=== PATIENT | male | born 1965 | race Caucasian/White ===

== ENCOUNTER → 2016-07-21 | Outpatient (CLI) | payer OTHER ==
[~2016-07-21] MED LIST: ACET-1256 PO; CYCL10TA6 PO; CYCL10TA7 PO; IBUP-1050 PO; MORP15TA PO; MethylPREDNISolone HOME PACK 16 MG TAB PO SCH; OMEP40CA PO; OMEP40CA41 PO; OPTIRAY 320 IV PRN; PSEU30TA20 PO; ZNTT/150 PO
--- NOTE | 2016-07-21 08:31 | DIAGNOSTIC IMAGING REPORT ---
CHEST CT WITH CONTRAST CT DOSE: 285.34 mGy.cm HISTORY: Tonsillar carcinoma. TECHNIQUE: Multiaxial CT images of the chest were performed following the intravenous administration of contrast. COMPARISON: Chest CT 12/24/2015. FINDINGS: The central airways remain patent. No pleural effusions. No pneumothorax. Mild emphysema. Mild biapical pleural-parenchymal scarring persists. A few scattered subcentimeter pulmonary nodules are again noted. There are no new or enlarging pulmonary nodules identified. Dominant nodule within the right lower lobe on image 262 measures 6 mm. No suspicious lytic or blastic osseous lesions. The visualized liver, spleen, and adrenal glands are unremarkable. No mediastinal or hilar lymphadenopathy. The heart is normal in size. Normal caliber thoracic aorta. IMPRESSION: No significant change compared to the prior study. Stable bilateral subcentimeter pulmonary nodules. Electronically signed by: Harjit Arcos M.D. 07/21/2016 8:30 AM Dictated Date/Time: 07/21/2016 8:24 AM
== END | disposition home or self-care (01) ==
LOC: C.CTS 07:52
PROVIDERS: ATTEND Nurse Practitioner Family
DX: R91.8 Other nonspecific abnormal finding of lung field (principal); C09.9 Malignant neoplasm of tonsil, unspecified; C76.0 Malignant neoplasm of head, face and neck

== ENCOUNTER 2016-08-23 22:28 | Emergency (ER) | payer OTHER ==
[~2016-08-23] VITALS: Ht 180.3 cm; Wt 72.7 kg
[~2016-08-23 22:28] MED LIST changes: -ACET-1256 PO; -CYCL10TA7 PO; -MethylPREDNISolone HOME PACK 16 MG TAB PO SCH; -OMEP40CA41 PO; -OPTIRAY 320 IV PRN; -ZNTT/150 PO
[2016-08-23 22:31] VITALS: TEMP 36.7; Ht 180.3 cm; Wt 72.7 kg
[2016-08-23] MEDS ORDERED: OMEP40CA41 PO (22:46)
[2016-08-23] MEDS ORDERED: CYCL10TA7 PO (22:46)
[2016-08-23] MEDS ORDERED: ACET-1256 PO (22:46)
[2016-08-23] MEDS ORDERED: METHYLPREDNISOLONE 125 MG VIAL IV STA (23:19)
--- NOTE | 2016-08-23 23:21 | EMERGENCY ROOM VISIT NOTE ---
History Report prepared by Marycruz: Giovanny Jama Under the Supervision of: Dr. Jocy Burt D.O. First contact with patient: 23:03 Chief Complaint: ABDOMINAL PAIN Stated Complaint: PAIN IN SIDE OF BELLY ON RIGHT Nursing Triage Summary: Right lower abdominal pain on and off for two weeks. History of problems with constipation. History of Present Illness The patient is a 51 year old male who presents to the Emergency Room with complaints of intermittent right lower quadrant abdominal pain for the past two weeks. The pain is worse when he is sitting versus when he is up and moving around. The pain is dull in nature. He is also feeling bloated. He denies fevers , chills, nausea, vomiting, leg cramping or swelling. He denies any changes in his urinary habits. He has a history of GERD and notes that his current pain is not similar to his GERD symptoms. 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 He is s/p tonsillectomy and has also had back surgeries. 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 He is on Morphine and deals with chronic constipation. He is not on blood thinners. Source of History: patient Onset: two weeks Position: abdomen (RLQ) Quality: dull Timing: intermittent Modifying Factors (Worsening): other (sitting) Associated Symptoms: No chills, No fevers, No nausea, No urinary symptoms, No vomiting Review of Systems See HPI for pertinent positives & negatives. A total of 10 systems reviewed and were otherwise negative. Past Medical & Surgical Medical Problems: (1) Cellulitis (2) GERD (gastroesophageal reflux disease) (3) Tonsil cancer Surgical Problems: (1) Previous back surgery Family History Cancer FH: aneurysm Social History Smoking Status: Current Every Day Smoker Alcohol Use: none Marital Status: Occupation Status: employed Current/Historical Medications Scheduled Morphine Sulfate Ir (Morphine Sulfate Ir), 15 MG PO QID Omeprazole (Prilosec), 40 MG PO DAILY Scheduled PRN Acetaminophen (Tylenol), 1,000 MG PO Q6H PRN for Pain Cyclobenzaprine HCl (Cyclobenzaprine HCl), 10 MG PO TID PRN for Muscle Spasm Ibuprofen (Advil), 200-600 MG PO Q4H PRN for Pain Allergies Coded Allergies: Oxycodone (Verified Allergy, Severe, SHORTNESS OF BREATH, 02/12/15) Penicillins (Verified Allergy, Intermediate, RASH, 02/12/15) Hydrocodone (Verified Allergy, Unknown, Thrush, 02/12/15) Iodinated Diagnostic Agents (Verified Adverse Reaction, Mild, Myelogram dye - bleeding, 02/12/15) Physical Exam Vital Signs Date Time Temp Pulse Resp B/P Pulse Ox O2 Delivery O2 Flow Rate FiO2 08/24/16 01:31 77 18 104/65 100 08/24/16 00:22 80 18 123/72 100 Room Air 08/23/16 23:58 83 18 109/68 96 Room Air 08/23/16 22:31 36.7 88 18 111/72 98 Room Air Physical Exam HEENT: Head - normocephalic and atraumatic Pupils are equal, round, and reactive to light. Extraocular eye muscles are intact, and sclera are anicteric. Nose - moist nasal mucosa without discharge. Mouth - moist buccal mucosa. Oropharynx is nonerythematous and there is no tonsillar exudate or edema noted. Neck: Supple; no JVD, nuchal rigidity, cervical lymphadenopathy. Heart: Regular rate and rhythm. There is a normal S1 and S2 with no murmurs, clicks, or gallops appreciated. Lungs: Clear to auscultation bilaterally with no wheezes, rales, or rhonchi. Abdomen: Mild discomfort with palpation of the right lower quadrant. Soft, nondistended, with good bowel sounds. There are no palpable pulsatile masses or hepatosplenomegaly. There is no guarding, rigidity, or rebound noted. Extremities: No evidence of cyanosis, clubbing, or edema. There are easily palpable peripheral pulses. Skin: warm and dry with good turgor and no rashes. Medical Decision & Procedures ER Provider Diagnostic Interpretation: Radiology results as stated below per my review and the radiologist's interpretation: CT ABDOMEN & PELVIS: Comparison to PET/CT dated 05/22/15. Liver, gallbladder, spleen, pancreas, adrenal glands, and kidney are normal. No bowel obstruction, appendicitis, or diverticulitis. Urinary bladder and prostate unremarkable. Post-surgical changes bilateral inguinal regions. No acute osseous findings. Posterior decompression and instrumentation with interbody fusion from L4-S1. Severe degenerative disc disease at L3-L4. Radiologist: Antoinette Amado MD. Laboratory Results 08/23/16 22:55 Red Blood Count 4.45, Mean Corpuscular Volume 91.5, Mean Corpuscular Hemoglobin 31.7, Mean Corpuscular Hemoglobin Concent 34.6, Mean Platelet Volume 9.9, Neutrophils (%) (Auto) 70.8, Lymphocytes (%) (Auto) 20.7, Monocytes (%) (Auto) 6.6, Eosinophils (%) (Auto) 1.3, Basophils (%) (Auto) 0.4, Neutrophils # (Auto) 7.90, Lymphocytes # (Auto) 2.31, Monocytes # (Auto) 0.74, Eosinophils # (Auto) 0.15, Basophils # (Auto) 0.04 08/23/16 22:55 Test 08/23/16 22:55 08/23/16 23:20 White Blood Count 11.16 K/uL (4.8-10.8) Red Blood Count 4.45 M/uL (4.7-6.1) Hemoglobin 14.1 g/dL (14.0-18.0) Hematocrit 40.7 % (42-52) Mean Corpuscular Volume 91.5 fL (80-100) Mean Corpuscular Hemoglobin 31.7 pg (25-34) Mean Corpuscular Hemoglobin Concent 34.6 g/dl (32-36) Platelet Count 261 K/uL (130-400) Mean Platelet Volume 9.9 fL (7.4-10.4) Neutrophils (%) (Auto) 70.8 % Lymphocytes (%) (Auto) 20.7 % Monocytes (%) (Auto) 6.6 % Eosinophils (%) (Auto) 1.3 % Basophils (%) (Auto) 0.4 % Neutrophils # (Auto) 7.90 K/uL (1.4-6.5) Lymphocytes # (Auto) 2.31 K/uL (1.2-3.4) Monocytes # (Auto) 0.74 K/uL (0.11-0.59) Eosinophils # (Auto) 0.15 K/uL (0-0.5) Basophils # (Auto) 0.04 K/uL (0-0.2) RDW Standard Deviation 45.7 fL (36.4-46.3) RDW Coefficient of Variation 13.7 % (11.5-14.5) Immature Granulocyte % (Auto) 0.2 % Immature Granulocyte # (Auto) 0.02 K/uL (0.00-0.02) Anion Gap 7.0 mmol/L (3-11) Est Creatinine Clear Calc Drug Dose 70.7 ml/min Estimated GFR () 74.3 Estimated GFR (Non- 64.1 BUN/Creatinine Ratio 20.9 (10-20) Calcium Level 9.1 mg/dl (8.5-10.1) Total Bilirubin 0.4 mg/dl (0.2-1) Direct Bilirubin < 0.1 mg/dl (0-0.2) Aspartate Amino Transf (AST/SGOT) 17 U/L (15-37) Alanine Aminotransferase (ALT/SGPT) 30 U/L (12-78) Alkaline Phosphatase 82 U/L (45-117) Total Protein 7.9 gm/dl (6.4-8.2) Albumin 3.9 gm/dl (3.4-5.0) Lipase 146 U/L (73-393) Urine Color YELLOW Urine Appearance CLEAR (CLEAR) Urine pH 7.0 (4.5-7.5) Urine Specific [place] 1.018 (1.000-1.030) Urine Protein NEG (NEG) Urine Glucose (UA) NEG (NEG) Urine Ketones NEG (NEG) Urine Occult Blood NEG (NEG) Urine Nitrite NEG (NEG) Urine Bilirubin NEG (NEG) Urine Urobilinogen NEG (NEG) Urine Leukocyte Esterase NEG (NEG) Laboratory results per my review. Medications Administered Medications (Trade) Dose Ordered Sig/Garfield Route Start Time Stop Time Status Last Admin Dose Admin Methylprednisolone Sodium Succinate 125 mg 125 mg NOW STAT IV 08/23/16 23:19 08/23/16 23:20 DC 08/23/16 23:28 125 MG Sodium Chloride (Nss 1000ml) 1,000 ml @ 999 mls/hr Q1H1M STAT IV 08/24/16 00:17 08/24/16 01:17 DC 08/24/16 00:28 999 MLS/HR Procedure Medications administered include Solu-Medrol IV, NSS IV. ED Course 2310: Past medical records reviewed. The patient was evaluated in room A10. A complete history and physical exam was performed. IV lock was established. Labs were drawn as above. 2319: The patient has a previous history of possible IV contrast allergy. He was given Solu-Medrol 125 mg IV. 0017: NSS 1000 ml @ 999 mls/hr. patient went for CT scan of the abdomen/pelvis as described above. 0050: Checked on the patient. He is doing well. He will be discharged after receiving his fluids. 0120: The patient is ready for discharge. Medical Decision The patient is a 51 year old male who presents to the ED with right lower quadrant abdominal pain. Differential diagnosis includes diverticulitis, colitis , appendicitis, cystitis. Laboratory interpretation: white count 11.1, stable H&H, BUN 27, creatinine 1.3 , normal glucose, normal LFTs, normal lipase, normal urinalysis. This is a 51-year-old male patient who presents to the emergency department with persistent right lower quadrant abdominal pain. He had no leukocytosis. He has no fever. CT scan of the Ativan/pelvis was negative. Patient had an elevated BUN/creatinine ratio and was given IV fluids. I did review previous records which revealed previous elevated BUN lab tests. I've asked patient to follow-up with his PCP. Impression Primary Impression: RLQ abdominal pain Additional Impression: Dehydration Scribe Attestation The scribe's documentation has been prepared under my direction and personally reviewed by me in its entirety. I confirm that the note above accurately reflects all work, treatment, procedures, and medical decision making performed by me. Departure Information Dispostion Home / Self-Care Referrals No Doctor, Assigned (PCP) Forms Call Back Authorization, HOME CARE DOCUMENTATION FORM, IMPORTANT VISIT INFORMATION Patient Instructions ED Abd Pain Unkn Cause Male, My [facility] Additional Instructions Rest. Take plenty of clear liquids and a bland diet Follow up with PCP if pain persists or if you feel that your sinus infection is worsening Problem Qualifiers
[2016-08-23 23:24] LABS: BASO % 0.4 %; BASO ABS # 0.04 K/uL (0-0.2); COMPLETE YES; EOS % 1.3 %; HEMATOCRIT 40.7 % (42-52); IG% 0.2 %; LYMPH % 20.7 %; LYMPH ABS # 2.31 K/uL (1.2-3.4); MEAN CELL VOLUME 91.5 fL (80-100); MEAN CORPUSCULAR HEMOGLOBIN 31.7 pg (25-34); MEAN CORPUSCULAR HGB CONC 34.6 g/dl (32-36); MEAN PLATELET VOLUME 9.9 fL (7.4-10.4); MONO % 6.6 %; NEUT % 70.8 %; PLATELET COUNT 261 K/uL (130-400); RED BLOOD COUNT 4.45 M/uL (4.7-6.1); WHITE BLOOD COUNT 11.16 K/uL (4.8-10.8)
[2016-08-23 23:40] LABS: URINE APPEARANCE CLEAR (CLEAR); URINE BILIRUBIN NEG (NEG); URINE COLOR YELLOW; URINE NITRITE NEG (NEG); URINE SPECIFIC GRAVITY 1.018 (1.000-1.030); UROBILINOGEN NEG (NEG)
[2016-08-23 23:43] LABS: MANUAL MICROSCOPIC REQUIRED? NO; REVIEW REQ? NO
[2016-08-23 23:44] LABS: ALT/SGPT 30 U/L (12-78); AST/SGOT 17 U/L (15-37); BLOOD UREA NITROGEN 27 mg/dl (7-18); BUN/CREATININE RATIO 20.9 (10-20); CALCIUM 9.1 mg/dl (8.5-10.1); CARBON DIOXIDE 33 mmol/L (21-32); CHLORIDE 102 mmol/L (98-107); GLUCOSE 84 mg/dl (70-99); POTASSIUM 3.6 mmol/L (3.5-5.1); SODIUM 142 mmol/L (136-145)
[2016-08-23] MEDS ORDERED: OPTIRAY 320 IV PRN (23:45)
[2016-08-23 23:47] LABS: ALKALINE PHOSPHATASE 82 U/L (45-117)
[2016-08-24] MEDS ORDERED: SODIUM CHLORIDE 0.9% 1000ML 1,000 ML IV STA (00:17)
[2016-08-24 01:31] VITALS: BP 104/65; PULSE 77; O2SAT 100
--- NOTE | 2016-08-24 07:06 | DIAGNOSTIC IMAGING REPORT ---
CT OF THE ABDOMEN AND PELVIS WITH CONTRAST CLINICAL HISTORY: Right lower quadrant pain. COMPARISON STUDY: PET/CT May 22, 2015. TECHNIQUE: Patient was premedicated for an iodinated IV dye allergy according to ED protocol. Following IV administration of 92 mL of Optiray-320, axial images of the abdomen and pelvis were obtained from the lung bases to the proximal femurs. Images were reviewed in the axial, sagittal, and coronal planes. IV contrast was administered without complication. CT DOSE: 286.62 mGy.cm FINDINGS: Visualized portions of the lower chest demonstrate several subpleural nodules which measure up to 6 mm. These are unchanged since PET/CT of May 16, 2014. These are benign given stability. The liver, spleen, adrenal glands, kidneys and pancreas are normal. There is no peripancreatic or pericholecystic infiltration. There is no hydronephrosis or hydroureter. The caliber and wall thickness of small and large bowel are normal. The appendix is normal. No suspicious osseous lesions are present. There are findings consistent with multilevel discectomy and fusion within the lumbosacral spine. There is no lymphadenopathy within the abdomen or the pelvis. There is no free fluid. No pneumatosis, free air or portal venous gas is present. IMPRESSION: No acute process within the abdomen or pelvis. Normal appendix. Electronically signed by: Javan Torres M.D. 08/24/2016 7:04 AM Dictated Date/Time: 08/24/2016 6:58 AM
[2016-09-18] MEDS ORDERED: ZNTT/150 PO (10:32)
[2016-09-18] MEDS ORDERED: PSEU30TA20 PO (10:32)
== END 2016-08-24 01:32 | disposition home or self-care (01) ==
LOC: C.EDB 22:29 → C.EDA 08-24 01:32
DX: R10.31 Right lower quadrant pain (principal); E86.0 Dehydration; K21.9 Gastro-esophageal reflux disease without esophagitis; F17.200 Nicotine dependence, unspecified, uncomplicated; Z85.89 Personal history of malignant neoplasm of other organs and systems; Z86.19 Personal history of other infectious and parasitic diseases; Z98.890 Other specified postprocedural states; Z88.0 Allergy status to penicillin; Z88.5 Allergy status to narcotic agent; Z88.8 Allergy status to other drugs, medicaments and biological substances; Z91.041 Radiographic dye allergy status; Z80.9 Family history of malignant neoplasm, unspecified

== ENCOUNTER → 2017-04-05 | Outpatient (CLI) | payer OTHER ==
[~2017-04-05] MED LIST changes: +ACET-1256 PO; -CYCL10TA6 PO; +CYCL10TA7 PO; +MethylPREDNISolone HOME PACK 16 MG TAB PO SCH; -OMEP40CA PO; +OMEP40CA41 PO; +OPTIRAY 320 IV PRN; +ZNTT/150 PO
--- NOTE | 2017-04-05 12:03 | DIAGNOSTIC IMAGING REPORT ---
CT SCAN OF THE CHEST WITH IV CONTRAST CLINICAL HISTORY: Tonsillar carcinoma. COMPARISON STUDY: Chest CT scans dated 07/21/2016 and 12/24/2015. PET/CT dated 12/03/2014. TECHNIQUE: Following the IV administration of 93 cc of Optiray 320, CT scan of the thorax was performed from the thoracic inlet to the upper abdomen. Images are reviewed in the axial, sagittal, and coronal planes. IV contrast was administered without complication. A dose lowering technique was utilized adhering to the principles of ALARA. CT DOSE: 311.70 mGycm FINDINGS: Thyroid: Imaged portions of the thyroid gland are normal in size and attenuation. Thoracic aorta: The thoracic aorta is normal in caliber and demonstrates 4-vessel variant arch anatomy. No dissection is seen. Pulmonary vasculature: The pulmonary trunk is normal in caliber. There are no filling defects identified in the central pulmonary vessels to indicate pulmonary embolus. Note that this examination was not protocoled for evaluation of the pulmonary arteries. Heart: The heart is normal in size and configuration, and without pericardial effusion. The coronary arteries are densely calcified. Lungs and pleural spaces: Mild emphysematous change is observed and there is apical scarring. Minimal secretions are noted in the trachea. There is no airspace consolidation typical for pneumonia or pleural effusion. There are scattered pulmonary nodules, similar in size and distribution to prior examinations. A pleural-based nodule in the right lower lobe seen on image #248 measures 7 mm. A left lower lobe pleural-based nodule on image #256 measures 5 mm. At least 10 additional smaller nodules are identified. No new pulmonary nodules are clearly seen. A calcified granuloma is noted along the right major fissure. Mediastinum: There is no mediastinal lymphadenopathy. Kia: Clear. Axillae: There is no axillary lymphadenopathy. Upper abdomen: Partially visualized upper abdominal viscera is within normal limits. Skeletal structures: No lytic or blastic bony lesions are seen. IMPRESSION: 1. There has been no significant change from 07/21/2016. 2. Numerous (at least 10) subcentimeter pulmonary nodules are unchanged in both size and distribution from prior studies. 3. There is no airspace consolidation or pleural effusion. 4. Emphysema. Electronically signed by: Missael Guevara M.D. 04/05/2017 12:02 PM Dictated Date/Time: 04/05/2017 11:53 AM
== END | disposition home or self-care (01) ==
LOC: C.CTS 09:57
PROVIDERS: ATTEND Nurse Practitioner Family
DX: C09.9 Malignant neoplasm of tonsil, unspecified (principal); R91.8 Other nonspecific abnormal finding of lung field; J43.9 Emphysema, unspecified

== ENCOUNTER → 2017-04-20 | Outpatient (CLI) | payer OTHER ==
[~2017-04-20] MED LIST changes: -MethylPREDNISolone HOME PACK 16 MG TAB PO SCH; -OPTIRAY 320 IV PRN
== END | disposition home or self-care (01) ==
LOC: C.LABBC 09:57
PROVIDERS: ATTEND Physician Assistant
DX: R53.83 Other fatigue (principal); F11.20 Opioid dependence, uncomplicated

== ENCOUNTER → 2017-10-05 | Outpatient (CLI) | payer OTHER ==
[~2017-10-05] MED LIST changes: +FLUT0.15 NAE; +OPTIRAY 320 IV PRN; +RANI150T85 PO; +SENNTAB23 PO; -ZNTT/150 PO
--- NOTE | 2017-10-05 08:59 | DIAGNOSTIC IMAGING REPORT ---
SINUS CT WITH INTRAVENOUS CONTRAST HISTORY: TONSILLAR CARCINOMA/PT WILL PRE-MED W/MEDROL TECHNIQUE: Multiaxial CT images of the sinuses were performed reformatted in the coronal plane following the use of intravenous contrast. COMPARISON STUDY: Head CT 05/22/2015. FINDINGS: The frontal sinuses, ethmoid air cells, sphenoid sinuses, right maxillary sinus, and mastoid air cells are clear. Moderate mucosal thickening within the floor of the left maxillary sinus with a trace fluid level. Mild right nasal septal deviation. No suspicious lytic or blastic lesions within the visualized osseous structures. The left ethmoid infundibula is partially opacified. The right ostiomeatal unit is patent. Lamina papyracea and orbital floors are intact. The visualized brain parenchyma and orbits are within normal limits. Pterygopalatine fossa are maintained. The visualized upper neck shows no soft tissue masses or lymphadenopathy. The left internal jugular vein is not identified and may have been previous resected. The visualized right internal jugular vein is patent. IMPRESSION: 1. Moderate mucosal thickening within the floor the left maxillary sinus with a trace fluid level. This suggests acute or chronic sinusitis. 2. Right nasal septal deviation. 3. No soft tissue masses identified within the sinuses. Electronically signed by: Harjit Arcos M.D. 10/05/2017 8:58 AM Dictated Date/Time: 10/05/2017 8:47 AM
--- NOTE | 2017-10-05 09:17 | DIAGNOSTIC IMAGING REPORT ---
CT OF THE NECK WITH CONTRAST CLINICAL HISTORY: Tonsillar carcinoma. COMPARISON STUDY: CT of the neck May 07, 2014 and PET/CT May 22, 2015. TECHNIQUE: Patient was premedicated for IV dye allergy as per protocol. Axial images of the neck were obtained following intravenous injection of 95 cc of Optiray 320 IV. FINDINGS: The CT of the sinuses will be reported separately. Visualized portions of the intracranial contents are unremarkable. There is no cervical lymphadenopathy. No mucosal lesion is identified although these may be occult by CT. Epiglottis is normal. Mild emphysema is noted within visualized portions the lung apices. No suspicious osseous lesions are present. Major vasculature of the neck is patent. Left submandibular gland is diminutive/atrophic. Post therapeutic findings within the left aspect of the neck are noted. The appearance is unchanged since CT of May 22, 2015. Visualized portions of the airway are patent. IMPRESSION: 1. No cervical lymphadenopathy. No evidence for recurrent malignancy. Unchanged appearance of the neck since PET/CT of May 22, 2015. 2. Mild emphysema. Electronically signed by: Javan Torres M.D. 10/05/2017 9:16 AM Dictated Date/Time: 10/05/2017 9:00 AM
== END | disposition home or self-care (01) ==
LOC: C.CTS 08:14
PROVIDERS: ATTEND Nurse Practitioner Family
DX: C09.9 Malignant neoplasm of tonsil, unspecified (principal); J34.2 Deviated nasal septum; J43.9 Emphysema, unspecified

== ENCOUNTER 2022-10-13 06:32 | Inpatient (IN) ==
[2022-10-13] MEDS ORDERED: SODIUM CHLORIDE 0.9% 1000ML 1,000 ML IV ONE (06:45)
[2022-10-13] MEDS ORDERED: GI COCKTAIL ED USE PO ONE (06:45)
[2022-10-13] MEDS ORDERED: KETOROLAC TROMETHAMINE 15 MG/ML VIAL IV ONE (06:45)
--- NOTE | 2022-10-13 06:47 | Emergency Department Note ---
Impression & Plan ST elevation SC (STEMI), Chest pain, Abdominal pain ED Provider Note NAME: TASHA SILVA AGE: 57 SEX: M : 1965 ARRIVES VIA: Walk-In INFORMANT: Patient ED PROVIDER(S): Harris Peña DO CHIEF COMPLAINT: abdominal pain HPI: Patient is a 57-year-old male with a past medical history of opiate dependence, chronic pain, lumbar laminectomy, GERD who presents to the ER for right lower quadrant abdominal pain which radiates up into his whole belly and then up through his chest. He notes he feels as though he has to constantly burp. Pain is significantly worse with eating. He did start yesterday morning and has not eaten since then. He was able to drink clear liquids. Denies any dysuria urgency or frequency. No fevers. Only abdominal surgery that he has had done is a left inguinal hernia repair. Denies all other exacerbating remitting factors. Burping sensation and pain does radiate from the infraumbilical region all the way up through his chest into the back of his throat. Patient notes that he did have the same symptoms about a week ago that only lasted for about an hour. PAST MEDICAL HISTORY:See Below PAST SURGICAL HISTORY:See Below FAMILY HISTORY:See Below SOCIAL HISTORY:See Below HOME MEDICATIONS:See Below ALLERGIES:See Below VITALS:See Below PHYSICAL EXAMINATION: GENERAL: Sitting up in bed, alert, well appearing, well nourished, no distress, non-toxic EYE EXAM: normal conjunctiva. OROPHARYNX: no exudate, no erythema, lips, buccal mucosa, and tongue normal and mucous membranes are moist NECK: supple, no nuchal rigidity, no adenopathy, non-tender LUNGS: Clear to auscultation. Normal chest wall mechanics HEART: no murmurs, S1 normal and S2 normal ABDOMEN: abdomen soft, TTP in epigastric region, normo-active bowel sounds, no masses, no rebound or guarding. : No appreciable hernia swelling. UPPER EXTREMITIES: upper extremities are grossly normal. LOWER EXTREMITIES: No pitting edema. NEURO EXAM: Normal sensorium, cranial nerves II-XII grossly intact, normal speech, no gross weakness of arms, no gross weakness of legs. MEDICAL DECISION MAKING: Patient is a 57-year-old male who presents the ER for abdominal pain radiating up through to the chest and commendation with burping and he believes it is slightly worse with eating. It started yesterday while he was shoveling. Obtained an EKG which showed Q waves throughout with ST segment elevations. Discussed with Dr. Live Montgomery at 7am. Reviewed the presentation and EKG with him. He recommended no heart alert at this time as he is Q'd out and believes that this did not occur within the past 24 hours. He recommends blood work and a full work-up and admission and echo. He was also agreeable with the CTs for dissection. Labs showed a leukocytosis of 20,000. No significant anemia. BMP with mild hyponatremia 131. Glucose 115. AST at 399. T. bili 8.8. Lipase was normal. UA did suggest dehydration. Patient was given aspirin and nitro. Attempted to call IC attending but was unsuccessful in contacting him initially. Did contact the product support technician was able to obtain quick stat echo. CT suggested acute SC as I discussed with Dr. Torres. Following this a quick echo was obtained which did show wall motion abnormality. In light of the gentleman sti ll having pain and wall motion abnormalities with ST segment elevation even with Q waves I did like to call a STEMI alert to have him evaluated at bedside by interventional cardiology. Heparin bolus and drip was ordered. Prior to being given interventional cardiology recommended holding on this. Brilinta was given orally. External records were reviewed. Patient was taken emergently to the [facility]. Triage Nursing notes reviewed. Limited review of prior medical records performed Vital Signs: reviewed and remarkable for tachy Differential diagnosis: Differential diagnoses includes but is not limited to gastritis, peptic ulcer disease, GERD, gallbladder disease, pancreatitis, small bowel obstruction, appendicitis, diverticulitis, hernia, urinary tract infection, torsion, perforation, trauma, infectious. ER treatment provided: See below Diagnostics interpreted by me include EKG and cardiac monitoring as listed below: -Cardiac Monitoring: An order was placed for continuous cardiac monitoring. The monitor shows a rate of 95 with sinus rhythm. -ECG: Sinus tachycardia rate of 105 Left axis Inferior Q waves Anterior and lateral Q waves with ST segment elevations V4 through V6 QTc 454 -Laboratory studies:Interpreted by me as stated above in MDM and shown below. Imaging studies: Xrays: As interpreted by me:none CTs show: CT of the chest per my read shows no obvious infiltrate CT of the chest and abdomen pelvis showed a questionable STEMI Consultation(s): Discussed with Dr. Montgomery recommended an echo and admission. Discussed with Dr. Herrera Torres, product support technician, and Dr. Marshall. Later discussed with Dr. Muller for further evaluation management treatment and admission. Procedures:none Critical Care: I have personally spent 75 minutes of critical care time in the direct management of this patient. This includes bedside care, interpretation of diagnostic studies, and testing, discussion with consultants, patient, and family members, and other required patient management activities. This 75 m inutes is in excess of all separately billable procedures. Past Med/Surg History Medical History (Updated 10/13/22 @ 12:43 by Harris Peña, DO) Acid reflux Cervical radiculopathy Cervical spondylosis GERD (gastroesophageal reflux disease) HPV in male Inguinal hernia Non-ST elevation SC (NSTEMI) Paresthesia of left upper extremity Tonsil cancer (05/18/14) "Status post left tonsillectomy stage TI N2b M0 Status post FNA of left neck Status post left robotic radical tonsillectomy, right robotic tonsillectomy and left selective neck dissection levels 2 through 4 on 06/22/2013. 3 of 37 nodes were positive with extra-robert extension. Positive lymph nodes at level II. Pathologic stage [id number] that T staging was T1 at initial surgery. 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 Feels Safe at Home: Yes Safety Concerns: Feels Safe At This Time Allergies Allergies Allergy/AdvReac Type Severity Reaction Status Date / Time oxycodone Allergy Severe SHORTNESS Verified 10/06/22 09:16 OF BREATH Penicillins Allergy Intermediate RASH Verified 10/06/22 09:16 hydrocodone Allergy Unknown Thrush Verified 10/06/22 09:16 Iodinated Contrast Media AdvReac Mild Myelogram Verified 10/06/22 09:16 dye - bleeding Home Meds Home Medications Medication Instructions Recorded Confirmed acetaminophen 500 mg tablet 1,000 mg PO Q6H PRN 03/17/18 10/06/22 (Tylenol Extra Strength) docusate sodium 100 mg capsule 100 mg PO DAILY 03/17/18 10/06/22 (Colace) ibuprofen 200 mg tablet (Advil) 600 mg PO Q6H PRN 03/17/18 10/06/22 omeprazole 40 mg capsule,delayed 40 mg PO DAILY 03/17/18 10/06/22 release thiamine HCl (vitamin B1) 100 mg 100 mg PO DAILY 07/29/20 10/06/22 tablet Previous Rx's Medication Instructions Recorded naloxone 4 mg/actuation nasal spray 1 spray intranasal Q3M PRN opioid 06/25/22 overdose #2 ea cyclobenzaprine 10 mg tablet 10 mg PO TID PRN muscle spasm #90 10/06/22 tabs morphine 15 mg immediate release 15 mg PO QID PRN pain #120 tabs 10/06/22 tablet Results & Data (ED) Vital Signs Vital Signs - 24 hr 10/13/22 06:35 10/13/22 07:09 10/13/22 07:09 Temperature 36.5 C Temperature Source Temporal Artery Scan Pulse Rate 111 H 104 H Pulse Rate [Apical] 103 H Pulse Rate from SpO2 Sensor Respiratory Rate 18 20 20 Respiratory Effort / Characteristics Non-Labored Spontaneous Non-Labored Spontaneous Respiratory Depth Normal Normal Respiratory Pattern Regular Blood Pressure 136/72 Blood Pressure [Right Arm] 142/86 H Blood Pressure Mean 93 Blood Pressure Mean [Right Arm] 104 Blood Pressure Position Sitting Blood Pressure Position [Right Arm] Pulse Oximetry 98 97 95 Oxygen Delivery Method Room Air Room Air Room Air Sepsis Recent Fever Within 48 Hours No Sepsis New/Unexplained Change in Mental Status N/A Sepsis Action Taken by Nursing No Action Required 10/13/22 07:36 10/13/22 07:52 10/13/22 07:02 Temperature Temperature Source Pulse Rate 107 H 100 H Pulse Rate [Apical] 104 H Pulse Rate from SpO2 Sensor 99 H Respiratory Rate 20 33 H Respiratory Effort / Characteristics Non-Labored Spontaneous Respiratory Depth Normal Respiratory Pattern Regular Blood Pressure Blood Pressure [Right Arm] 142/92 H Blood Pressure Mean Blood Pressure Mean [Right Arm] 108 Blood Pressure Position Blood Pressure Position [Right Arm] Pulse Oximetry 97 99 Oxygen Delivery Method Room Air Sepsis Recent Fever Within 48 Hours Sepsis New/Unexplained Change in Mental Status Sepsis Action Taken by Nursing 10/13/22 07:33 10/13/22 07:33 10/13/22 07:36 Temperature Temperature Source Pulse Rate 103 H 104 H Pulse Rate [Apical] Pulse Rate from SpO2 Sensor 99 H 104 H Respiratory Rate 21 24 Respiratory Effort / Characteristics Respiratory Depth Respiratory Pattern Blood Pressure 140/96 Blood Pressure [Right Arm] Blood Pressure Mean 109 Blood Pressure Mean [Right Arm] Blood Pressure Position Blood Pressure Position [Right Arm] Pulse Oximetry 96 97 Oxygen Delivery Method Sepsis Recent Fever Within 48 Hours Sepsis New/Unexplained Change in Mental Status Sepsis Action Taken by Nursing 10/13/22 07:36 10/13/22 08:00 10/13/22 08:00 Temperature Temperature Source Pulse Rate 107 H Pulse Rate [Apical] Pulse Rate from SpO2 Sensor 106 H Respiratory Rate 20 Respiratory Effort / Characteristics Respiratory Depth Respiratory Pattern Blood Pressure 142/92 H 139/93 Blood Pressure [Right Arm] Blood Pressure Mean 108 108 Blood Pressure Mean [Right Arm] Blood Pressure Position Blood Pressure Position [Right Arm] Pulse Oximetry 96 Oxygen Delivery Method Sepsis Recent Fever Within 48 Hours Sepsis New/Unexplained Change in Mental Status Sepsis Action Taken by Nursing 10/13/22 09:00 10/13/22 09:15 10/13/22 09:39 Temperature 36.6 C Temperature Source Oral Pulse Rate Pulse Rate [Apical] 110 H 100 H Pulse Rate from SpO2 Sensor Respiratory Rate 16 16 Respiratory Effort / Characteristics Non-Labored Spontaneous Non-Labored Spontaneous Respiratory Depth Normal Normal Respiratory Pattern Regular Regular Blood Pressure Blood Pressure [Right Arm] 151/102 H 144/92 H Blood Pressure Mean Blood Pressure Mean [Right Arm] 118 109 Blood Pressure Position Blood Pressure Position [Right Arm] Lying Lying Pulse Oximetry 98 97 Oxygen Delivery Method Room Air Room Air Sepsis Recent Fever Within 48 Hours Sepsis New/Unexplained Change in Mental Status Sepsis Action Taken by Nursing 10/13/22 09:34 10/13/22 09:45 10/13/22 09:30 Temperature Temperature Source Pulse Rate 108 H Pulse Rate [Apical] Pulse Rate from SpO2 Sensor 106 H Respiratory Rate 21 Respiratory Effort / Characteristics Non-Labored Spontaneous Respiratory Depth Normal Respiratory Pattern Regular Blood Pressure 137/95 Blood Pressure [Right Arm] Blood Pressure Mean 106 Blood Pressure Mean [Right Arm] Blood Pressure Position Blood Pressure Position [Right Arm] Pulse Oximetry 97 Oxygen Delivery Method Room Air Sepsis Recent Fever Within 48 Hours Sepsis New/Unexplained Change in Mental Status Sepsis Action Taken by Nursing Laboratory Data 10/13/22 06:59 10/13/22 06:59 Lab Results 10/13/22 10/13/22 10/13/22 Range/Units 06:59 06:59 06:59 WBC 21.51 H (4.8-10.8) K/ul RBC 4.57 L (4.70-6.10) M/uL Hgb 14.4 (14.0-18.0) g/dl Hct 42.3 (42.0-52.0) % MCV 92.6 (80.0-100.0) fL MCH 31.5 (25.0-34.0) pg MCHC 34.0 (32.0-36.0) g/dL RDW Std Deviation 46.2 (36.4-46.3) fL RDW Coeff of Payton 13.5 (11.5-14.5) % Plt Count 317 (130-400) K/uL MPV 10.0 (9.4-12.4) fL Immature Gran % (Auto) 0.5 % Neut % (Auto) 86.6 % Lymph % (Auto) 6.3 % [place] % (Auto) 6.5 % Eos % (Auto) 0.0 % Baso % (Auto) 0.1 % Neut # (Auto) 18.60 H (1.40-6.50) K/uL Lymph # (Auto) 1.36 (1.2-3.4) K/uL [place] # (Auto) 1.40 H (0.11-0.59) K/uL Eos # (Auto) 0.01 (0-0.50) K/uL Baso # (Auto) 0.03 (0-0.2) K/uL Immature Gran # (Auto) 0.11 (0.01-0.20) K/uL Sodium 131 L (136-145) mmol/L Potassium 3.8 (3.5-5.1) mmol/L Chloride 95 L (98-107) mmol/L Carbon Dioxide 28 (21-32) mmol/L Anion Gap 8 (3-11) BUN 16 (6-23) mg/dl Creatinine 1.10 (0.6-1.4) mg/dl Est Cr Clr Drug Dosing 80.8 ml/min Est GFR ( Amer) 87.1 ml/min Est GFR (Non-Af Amer) 75.2 ml/min BUN/Creatinine Ratio 14.5 (10-20) Glucose 115 H (70-99(Fasting)) mg/dl Calcium 10.4 H (8.6-10.3) mg/dl Phosphorus 3.4 (2.5-4.9) mg/dl Magnesium 2.1 (1.7-2.4) mg/dl Total Bilirubin 0.8 (0.2-1.0) mg/dl AST 399 H (13-39) U/L ALT 70 H (7-52) U/L Alkaline Phosphatase 80 (34-104) U/L Troponin I High Sens 07185.1 H* (0-20) pg/ml Total Protein 8.1 (6.0-8.3) gm/dl Albumin 4.6 (3.4-5.0) gm/dl Globulin 3.5 (2.5-4.0) gm/dl Albumin/Globulin Ratio 1.3 (0.9-2) Lipase 11 (11-82) U/L Urine Color Yellow Urine Appearance Cloudy A (Clear) Urine pH 7.0 (4.5-7.5) Ur Specific [place]atin 1.011 (1.000-1.030) Urine Protein Negative (Negative) Urine Glucose (UA) Negative (Negative) Urine Ketones 3+ H (Negative) Urine Blood Negative (Negative) Urine Nitrite Negative (Negative) Urine Bilirubin Negative (Negative) Urine Urobilinogen Negative (Negative) Ur Leukocyte Esterase Negative (Negative) Urine WBC (Auto) 0 (0-5) /hpf Urine RBC (Auto) 0-4 (0-4) /hpf U Hyaline Cast (Auto) 1-5 (0-5) /lpf U Epithel Cells (Auto) 5-10 H (0-5) /lpf Urine Bacteria (Auto) Negative (Negative) SARS-CoV-2, RNA, NAAT (NEGATIVE) 10/13/22 Range/Units 07:34 WBC (4.8-10.8) K/ul RBC (4.70-6.10) M/uL Hgb (14.0-18.0) g/dl Hct (42.0-52.0) % MCV (80.0-100.0) fL MCH (25.0-34.0) pg MCHC (32.0-36.0) g/dL RDW Std Deviation (36.4-46.3) fL RDW Coeff of Payton (11.5-14.5) % Plt Count (130-400) K/uL MPV (9.4-12.4) fL Immature Gran % (Auto) % Neut % (Auto) % Lymph % (Auto) % [place] % (Auto) % Eos % (Auto) % Baso % (Auto) % Neut # (Auto) (1.40-6.50) K/uL Lymph # (Auto) (1.2-3.4) K/uL [place] # (Auto) (0.11-0.59) K/uL Eos # (Auto) (0-0.50) K/uL Baso # (Auto) (0-0.2) K/uL Immature Gran # (Auto) (0.01-0.20) K/uL Sodium (136-145) mmol/L Potassium (3.5-5.1) mmol/L Chloride (98-107) mmol/L Carbon Dioxide (21-32) mmol/L Anion Gap (3-11) BUN (6-23) mg/dl Creatinine (0.6-1.4) mg/dl Est Cr Clr Drug Dosing ml/min Est GFR ( Amer) ml/min Est GFR (Non-Af Amer) ml/min BUN/Creatinine Ratio (10-20) Glucose (70-99(Fasting)) mg/dl Calcium (8.6-10.3) mg/dl Phosphorus (2.5-4.9) mg/dl Magnesium (1.7-2.4) mg/dl Total Bilirubin (0.2-1.0) mg/dl AST (13-39) U/L ALT (7-52) U/L Alkaline Phosphatase (34-104) U/L Troponin I High Sens (0-20) pg/ml Total Protein (6.0-8.3) gm/dl Albumin (3.4-5.0) gm/dl Globulin (2.5-4.0) gm/dl Albumin/Globulin Ratio (0.9-2) Lipase (11-82) U/L Urine Color Urine Appearance (Clear) Urine pH (4.5-7.5) Ur Specific [place] (1.000-1.030) Urine Protein (Negative) Urine Glucose (UA) (Negative) Urine Ketones (Negative) Urine Blood (Negative) Urine Nitrite (Negative) Urine Bilirubin (Negative) Urine Urobilinogen (Negative) Ur Leukocyte Esterase (Negative) Urine WBC (Auto) (0-5) /hpf Urine RBC (Auto) (0-4) /hpf U Hyaline Cast (Auto) (0-5) /lpf U Epithel Cells (Auto) (0-5) /lpf Urine Bacteria (Auto) (Negative) SARS-CoV-2, RNA, NAAT NEGATIVE (NEGATIVE) Administered Medications Atorvastatin Calcium (Atorvastatin 40 Mg Tab) 40 mg PO QAM [facility] Stop: 11/12/22 08:59 Last Admin: 10/13/22 11:06 Dose: 40 mg Documented By: MIRLANDE Heparin Sodium/Dextrose (Heparin Sodium/Dextrose) 25,000 units in 500 mls @ 19 mls/hr IV .Q24H [facility]; Protocol Stop: 11/12/22 08:14 Last Titration: 10/13/22 09:52 Dose: 950 units/hr, 19 mls/hr Documented By: MIRLANDE Co-signed By: REBECCA Admin: 10/13/22 08:51 Dose: 1,400 units/hr, 28 mls/hr Documented By: MAGDA Co-signed By: EMMANUEL Metoprolol Tartrate (Metoprolol Tartrate 25 Mg Tab) 25 mg PO BID [facility] Stop: 11/12/22 10:14 Last Admin: 10/13/22 11:06 Dose: 25 mg Documented By: MIRLANDE Nitroglycerin (Nitroglycerin Sl 0.4 Mg/Tab Tab) 0.4 mg SL PRN PRN PRN Reason: Chest Pain Stop: 11/12/22 11:09 Last Admin: 10/13/22 11:36 Dose: 0.4 mg Documented By: MIRLANDE Nitroglycerin (Nitroglycerin 2% Ointment 30gm Tube) 1 inch EXT TID@0600,1 200,1800 [facility] Stop: 11/12/22 11:59 Last Admin: 10/13/22 12:33 Dose: 1 inch Documented By: MIRLANDE Pantoprazole Sodium (Pantoprazole 40 Mg Tab) 40 mg PO QAM [facility] Stop: 11/12/22 11:14 Last Admin: 10/13/22 11:38 Dose: 40 mg Documented By: MIRLANDE Discontinued Medications Al Hydrox/Mg Hydrox/Simethicone (Gi Cocktail Ed Use) 1 dose PO ONE ONE Stop: 10/13/22 06:46 Last Admin: 10/13/22 06:57 Dose: 1 dose Documented By: SONIDO Al Hydrox/Mg Hydrox/Simethicone (Aluminum/Magnesium Susp 30 Ml Udc) 15 ml PO NOW STA Stop: 10/13/22 11:07 Last Admin: 10/13/22 11:36 Dose: 15 ml Documented By: MIRLANDE Aspirin (Aspirin Chew 324 Mg) 324 mg PO NOW STA Stop: 10/13/22 07:14 Last Admin: 10/13/22 07:33 Dose: 324 mg Documented By: SONIDO Atropine Sulfate (Atropine Sulfate 0.1 Mg/Ml 10ml Syr) Confirm Administered Dose 1 mg IV .STK-MED ONE Stop: 10/13/22 08:26 Last Admin: 10/13/22 10:36 Dose: Not Given Documented By: MIRLANDE Fentanyl Citrate (Fentanyl Citrate Pf 100 Mcg/2 Ml Vial) Confirm Administered Dose 100 mcg .ROUTE .STK-MED ONE Stop: 10/13/22 07:51 Last Increment: 10/13/22 08:49 Dose: 25 mcg Documented By: MAGDA Heparin Sodium (Porcine) (Heparin (Porcine) 1000 Unit/Ml 10 Ml ([facility] Use Only)) Confirm Administered Dose 10,000 units .ROUTE .STK-MED ONE Stop: 10/13/22 07:51 Last Admin: 10/13/22 08:50 Dose: 7,000 units Documented By: MAGDA Heparin Sodium/Sodium Chloride (Heparin In Nss Infusion 1000 Unit/500 Ml (2 U/Ml) Bag) Confirm Administered Dose 3,000 units IV .STK-MED ONE Stop: 10/13/22 07:51 Last Admin: 10/13/22 08:50 Dose: 3,000 units Documented By: ELDER Sodium Chloride (Nss 1000ml) 1,000 mls @ 999 mls/hr IV .Q1H1M ONE Stop: 10/13/22 07:45 Last Infusion: 10/13/22 12:26 Dose: 0 mls/hr Documented By: Admin: 10/13/22 06:56 Dose: 999 mls/hr Documented By: SONIDO Ioversol (Optiray 320 500ml) 120 ml IV ONCE ONE Stop: 10/13/22 07:28 Last Admin: 10/13/22 07:28 Dose: 120 ml Documented By: MELYSSA Ketorolac Tromethamine (Ketorolac Tromethamine 15 Mg/Ml Vial) 15 mg IV NOW ONE Stop: 10/13/22 06:46 Last Admin: 10/13/22 06:56 Dose: 15 mg Documented By: SONIDO Midazolam HCl (Midazolam Hcl 1 Mg/Ml 2ml Vial) Confirm Administered Dose 2 mg .ROUTE .STK-MED ONE Stop: 10/13/22 07:51 Last Increment: 10/13/22 08:50 Dose: 1 mg Documented By: MAGDA Morphine Sulfate (Morphine Sulfate 2 Mg/Ml Carp) 2 mg IV NOW STA Stop: 10/13/22 09:10 Last Admin: 10/13/22 10:50 Dose: 2 mg Documented By: MIRLANDE Morphine Sulfate (Morphine Sulfate 2 Mg/Ml Carp) Confirm Administered Dose 2 mg .ROUTE .STK-MED ONE Stop: 10/13/22 09:15 Last Admin: 10/13/22 09:17 Dose: 2 mg Documented By: EMMANUEL Nicardipine HCl (Nicardipine Hcl Inj 2.5 Mg/Ml 10 Ml Amp) Confirm Administered Dose 25 mg .ROUTE .STK-MED ONE Stop: 10/13/22 07:51 Last Admin: 10/13/22 08:50 Dose: 25 mg Documented By: ELDER Nitroglycerin (Nitroglycerin Sl 0.4 Mg/Tab Tab) 0.4 mg SL NOW STA Stop: 10/13/22 07:14 Last Admin: 10/13/22 07:33 Dose: 0.4 mg Documented By: SONIDO Nitroglycerin/Dextrose (Nitroglycerin/D5w 100mcg/Ml 20ml Syr) Confirm Administered Dose 2,000 mcg .ROUTE .STK-MED ONE Stop: 10/13/22 07:51 Last Admin: 10/13/22 08:50 Dose: 2,000 mcg Documented By: ELDER Ticagrelor (Ticagrelor 90 Mg Tab) Confirm Administered Dose 180 mg .ROUTE .STK- MED ONE Stop: 10/13/22 08:00 Last Admin: 10/13/22 08:13 Dose: 180 mg Documented By: [facility] Imaging Data Radiologist's Impression: Abdomen/Pelvis CT 10/13/22 06:52 CT OF THE ABDOMEN AND PELVIS WITH CONTRAST CLINICAL HISTORY: Periumbilical abdominal pain. COMPARISON STUDY: CT of the abdomen and pelvis August 24, 2016. TECHNIQUE: Following IV administration of 120 mL of Optiray, axial images of the abdomen and pelvis were obtained from the lung bases to the proximal femurs. Images were reviewed in the axial, sagittal, and coronal planes. IV contrast was administered without complication. Automated exposure control was utilized for the study. A dose lowering technique was utilized adhering to the principles of ALARA. FINDINGS: Multiple subpleural nodules within the lower lungs are unchanged since prior exams. These are benign given stability. There is mild dilatation of the left ventricle. Note is made of subendocardial hypodensity within the left ventricular apex as well as involving the mid to distal aspects of the free wall and interventricular septum. No pneumatosis, free air or portal venous gas is present. Liver, spleen, adrenal glands, kidneys and pancreas are normal. There is no biliary or pancreatic ductal dilatation. No evidence for a bowel obstruction. The appendix is normal. There is moderate plaque of the abdominal aorta. There are postoperative findings within the spine. No fluid collection is present. There is no ascites. No hydronephrosis. IMPRESSION: 1. No acute process within the abdomen or pelvis. 2. Findings suggestive of acute myocardial infarction involving the left ventricle, as described above. Discussed with Dr. Peña at time of dictation. ACT 112: Negative or not required by law. Electronically signed by: Javan Torres M.D. 10/13/2022 7:56 AM Chest CTA 10/13/22 07:13 CT ANGIOGRAPHY OF THE CHEST CLINICAL HISTORY: Abdominal pain through up into chest. COMPARISON STUDY: Chest CTs January 31, 2020 and May 20, 2022. TECHNIQUE: Helical axial images of the chest were obtained during arterial phase following intravenous injection of 120 cc of Optiray 320 IV. Sagittal and yates l reconstructions were viewed as well as maximal intensity projections on an independent 3-D workstation. Automated exposure control was utilized for the study. A dose lowering technique was utilized adhering to the principles of ALARA. FINDINGS: Caliber of the thoracic aorta is normal. There is no thoracic aortic dissection. No pulmonary emboli are identified. There is no pericardial effusion. Extensive calcification within the left anterior descending coronary artery is present. There is mild dilatation of the left ventricle. Note is made of hypodensity within the myocardium of the left ventricle which involves the mid to distal interventricular septum, the apex and the mid to distal aspect of the free wall. No pneumothorax pleural effusion is present. There is subtle interlobular septal thickening. Pulmonary nodules are unchanged from earlier exams. These are benign given stability. Emphysema is noted. No consolidation to suggest pneumonia. No acute fractures. Abdomen and pelvis CT will be reported separately. IMPRESSION: 1. No thoracic aortic dissection. 2. Myocardial hypodensity within the left ventricle, as detailed above. This is suspicious for an acute myocardial infarction. Findings discussed with Dr. Peña at time of dictation. Mild dilatation of the left ventricle. Extensive calcification within the left anterior descending coronary. 3. Possible mild pulmonary edema. 4. No change in multiple pulmonary nodules which are benign given stability. 5. Emphysema. ACT 112: Negative or not required by law. Electronically signed by: Javan Torres M.D. 10/13/2022 7:51 AM Discharge Plan Visit Data Chief Complaint: GI Assessment Stated Complaint: GAS PUSHING UP UNDER CHEST,NECK PAIN ED Provider: Harris Peña Discharge Problem: ST elevation SC (STEMI), Chest pain, Abdominal pain Patient Disposition: Admitted As Inpatient Discharge Instructions Interventions: ED Discharge Assessment Last Done: 10/13/22 08:11
[2022-10-13] MEDS ORDERED: ASPIRIN CHEW 324 MG PO STA (07:13)
[2022-10-13] MEDS ORDERED: NITROGLYCERIN SL 0.4 MG/TAB TAB SL STA (07:13)
[2022-10-13 07:22] LABS: Appearance Urine Cloudy (Clear); Bacteria Urine Automated Negative (Negative); Bilirubin Urine Negative (Negative); Blood Urine Negative (Negative); Color Urine Yellow; Glucose Urine UA Negative (Negative); Ketones Urine 3+ (Negative); Leukocyte Esterase Urine Negative (Negative); Nitrite Urine Negative (Negative); Protein Urine Negative (Negative); RBC Urine Automated 0-4 /hpf (0-4); Specific Gravity Urine 1.011 (1.000-1.030); Urobilinogen Urine Negative (Negative); WBC Urine Automated 0 /hpf (0-5)
[2022-10-13 07:25] LABS: Basophils # (auto) 0.03 K/uL (0-0.2); Basophils % (auto) 0.1 %; Eosinophils # (auto) 0.01 K/uL (0-0.50); Hematocrit (blood only) 42.3 % (42.0-52.0); Hemoglobin 14.4 g/dl (14.0-18.0); Immature Granulocytes # (auto) 0.11 K/uL (0.01-0.20); Immature Granulocytes % (auto) 0.5 %; Lymphocytes # (auto) 1.36 K/uL (1.2-3.4); Lymphocytes % (auto) 6.3 %; Mean Corpuscular Hemoglobin 31.5 pg (25.0-34.0); Mean Corpuscular Volume 92.6 fL (80.0-100.0); Monocytes % (auto) 6.5 %; Neutrophils % (auto) 86.6 %; Platelet Count 317 K/uL (130-400); RDW Coefficient of Variation 13.5 % (11.5-14.5); RDW Standard Deviation 46.2 fL (36.4-46.3); Red Blood Count 4.57 M/uL (4.70-6.10); White Blood Count 21.51 K/ul (4.8-10.8)
[2022-10-13] MEDS ORDERED: OPTIRAY 320 500ml IV ONE (07:27)
[2022-10-13 07:39] LABS: Albumin Globulin Ratio 1.3 (0.9-2); Albumin Level 4.6 gm/dl (3.4-5.0); BUN Creatinine Ratio 14.5 (10-20); Bilirubin,Total 0.8 mg/dl (0.2-1.0); Calcium 10.4 mg/dl (8.6-10.3); Creatinine Clr Calc Pharmacy 80.8 ml/min; Est GFR (African American) 87.1 ml/min; Est GFR (Non-African American) 75.2 ml/min; Globulin 3.5 gm/dl (2.5-4.0); Potassium 3.8 mmol/L (3.5-5.1); Total Protein 8.1 gm/dl (6.0-8.3)
[2022-10-13] MEDS ORDERED: NITROGLYCERIN/D5W 100MCG/ML 20ML SYR ONE (07:50)
[2022-10-13] MEDS ORDERED: HEPARIN (PORCINE) 1000 UNIT/ML 10 ML (CATH LAB USE ONLY) ONE (07:50)
[2022-10-13] MEDS ORDERED: niCARdipine HCL INJ 2.5 MG/ML 10 ML AMP ONE (07:50)
[2022-10-13] MEDS ORDERED: MIDAZOLAM HCL 1 MG/ML 2ML VIAL ONE (07:50)
[2022-10-13] MEDS ORDERED: fentaNYL citrate PF 100 MCG/2 ML VIAL ONE (07:50)
--- NOTE | 2022-10-13 07:53 | CT Scan Report ---
CT ANGIOGRAPHY OF THE CHEST CLINICAL HISTORY: Abdominal pain through up into chest. COMPARISON STUDY: Chest CTs January 31, 2020 and May 20, 2022. TECHNIQUE: Helical axial images of the chest were obtained during arterial phase following intravenou s injection of 120 cc of Optiray 320 IV. Sagittal and coronal reconstructions were viewed as well as maximal intensity projections on an independent 3-D workstation. Automated exposure control was utili Mersive for the study. A dose lowering technique was utilized adhering to the principles of ALARA. FINDINGS: Caliber of the thoracic aorta is normal. There is no thoracic aortic dissection. No pulmona ry emboli are identified. There is no pericardial effusion. Extensive calcification within the left a nterior descending coronary artery is present. There is mild dilatation of the left ventricle. Note i s made of hypodensity within the myocardium of the left ventricle which involves the mid to distal in terventricular septum, the apex and the mid to distal aspect of the free wall. No pneumothorax pleura l effusion is present. There is subtle interlobular septal thickening. Pulmonary nodules are unchange d from earlier exams. These are benign given stability. Emphysema is noted. No consolidation to sugge st pneumonia. No acute fractures. Abdomen and pelvis CT will be reported separately. IMPRESSION: 1. No thoracic aortic dissection. 2. Myocardial hypodensity within the left ventricle, as detailed above. This is suspicious for an acu te myocardial infarction. Findings discussed with Dr. Peña at time of dictation. Mild dilatation of the left ventricle. Extensive calcification within the left anterior descending coronary. 3. Possible mild pulmonary edema. 4. No change in multiple pulmonary nodules which are benign given stability. 5. Emphysema. ACT 112: Negative or not required by law. Electronically signed by: Javan Torres M.D. 10/13/2022 7:51 AM
--- NOTE | 2022-10-13 07:57 | CT Scan Report ---
CT OF THE ABDOMEN AND PELVIS WITH CONTRAST CLINICAL HISTORY: Periumbilical abdominal pain. COMPARISON STUDY: CT of the abdomen and pelvis August 24, 2016. TECHNIQUE: Following IV administration of 120 mL of Optiray, axial images of the abdomen and pelvis w ere obtained from the lung bases to the proximal femurs. Images were reviewed in the axial, sagittal, and coronal planes. IV contrast was administered without complication. Automated exposure control w as utilized for the study. A dose lowering technique was utilized adhering to the principles of ALAYovani Craig. FINDINGS: Multiple subpleural nodules within the lower lungs are unchanged since prior exams. These a re benign given stability. There is mild dilatation of the left ventricle. Note is made of subendocar dial hypodensity within the left ventricular apex as well as involving the mid to distal aspects of t he free wall and interventricular septum. No pneumatosis, free air or portal venous gas is present. L iver, spleen, adrenal glands, kidneys and pancreas are normal. There is no biliary or pancreatic duct al dilatation. No evidence for a bowel obstruction. The appendix is normal. There is moderate plaque of the abdominal aorta. There are postoperative findings within the spine. No fluid collection is pre sent. There is no ascites. No hydronephrosis. IMPRESSION: 1. No acute process within the abdomen or pelvis. 2. Findings suggestive of acute myocardial infarction involving the left ventricle, as described kathleen mohan. Discussed with Dr. Peña at time of dictation. ACT 112: Negative or not required by law. Electronically signed by: Javan Torres M.D. 10/13/2022 7:56 AM
[2022-10-13] MEDS ORDERED: TICAGRELOR 90 MG TAB ONE (07:59)
[2022-10-13] MEDS ORDERED: Heparin IV Adult Wt-Based Low-Dose WITH Bolus Protocol STA (07:59)
[2022-10-13] MEDS ORDERED: HEPARIN SOD (PORCINE) 1000 UNIT/ML IV ONE ×2 (08:14→10:00)
[2022-10-13 08:18] LABS: Troponin I High Sensitivity 61160.1 pg/ml (0-20)
[2022-10-13] MEDS ORDERED: ATROPINE SULFATE 0.1 MG/ML 10ML SYR IV ONE (08:25)
[2022-10-13] MEDS: HEPARIN SODIUM/DEXTROSE 25,000 UNITS/500 ML BAG IV SCH (08:51)
[2022-10-13] MEDS ORDERED: ONDANSETRON INJ 2 MG/ML 2 ML VIAL IV PRN (08:54)
[2022-10-13] MEDS ORDERED: SODIUM CHLORIDE 0.9% 500 ML IV PRN (08:54)
[2022-10-13] MEDS ORDERED: ACETAMINOPHEN 325 MG TAB PO PRN (08:54)
[2022-10-13] MEDS ORDERED: MoRPHine SULFATE 2 MG/ML CARP IV STA (09:09)
[2022-10-13] MEDS ORDERED: KETOROLAC TROMETHAMINE 15 MG/ML VIAL IV PRN (09:12)
[2022-10-13] MEDS ORDERED: MoRPHine SULFATE 2 MG/ML CARP ONE (09:14)
--- NOTE | 2022-10-13 09:16 | Electrocardiogram Report ---
Test Reason : Blood Pressure : / mmHG Vent. Rate : 105 BPM Atrial Rate : 105 BPM P-R Int : 166 ms QRS Dur : 096 ms QT Int : 344 ms P-R-T Axes : 070 254 063 degrees QTc Int : 454 ms Sinus tachycardia Left atrial enlargement Acute Anterolateral infarct Inferior infarct , age undetermined Abnormal ECG When compared with ECG of 16-MAY-2014 09:24, ST elevation in Anterior leads now present Criteria for Inferior infarct now present Confirmed by Phill Catalan ([id number]) on 10/13/2022 9:15:26 AM Referred By: REFERRED SELF Confirmed By:Phill Catalan
[2022-10-13] MEDS ORDERED: POLYETHYLENE (MIRALAX) 17 GM PACK PO PRN (09:53)
--- NOTE | 2022-10-13 10:02 | Critical Care Consultation ---
Date of Consultation October 13, 2022 Assessment & Plan (1) ST elevation AR (STEMI): (2) Chest pain: (3) Ischemic cardiomyopathy: (4) ST elevation (STEMI) myocardial infarction involving left anterior descending coronary artery: (5) Coronary artery disease: (6) Lumbar post-laminectomy syndrome: (7) Current smoker: (8) Transaminitis: Plan CTA chest 10/13/2022 personally reviewed:Centrilobular emphysema appreciated bilaterally, minimal bilateral apical pleural scarring more on the right Right lower lobe peripheral pleural-based 4 mm pulmonary nodule Dependent atelectasis bilateral lower lobes No pulmonary emboli -- STEMI S/p cardiac cath 10/13/2022, unsuccessful attempted PCI Diagonal ostium of the LAD 100% occlusion Medical management with aspirin, statin, beta-blockers Plavix/Brilinta on hold for possible surgical intervention needed in the near future Troponin 611,000, CPK 3655 TSH 0.6 Trend troponin and EKG Cardiology following 2D echo shows EF 30-35% with akinesia of the LV --Transaminitis Likely secondary to STEMI Continue to trend --Anginal pain Patient still complains of pain He has been getting morphine and nitroglycerin --COPD and active smoker Greater than [id number] smoking history Not on any inhalers at home Importance of quitting explained to the patient in depth -- Chronic opioid dependence Takes morphine at home Would continue with the same regimen along with laxatives --Leukocytosis Likely reactive to STEMI No clear source of infection Continue to trend --Prophylaxis VTE: Heparin drip GI: Pantoprazole Lines: Peripheral Diet: Cardiac Plan: Repeat EKG still showed mild ST elevation on the lateral leads Patient still complaining of chest pain. Giving nitroglycerin paste. If the patient still complains of pain then nitroglycerin drip could be thought of keeping an eye on SBP Start the patient on Incruse inhaler to be used on a daily basis Nicotine patch while in the hospital Please note the above document was generated using voice recognition software. It may contain grammatical, syntax or spelling errors.Any formal questions or concerns about the content, text or information contained within the body of this dictation should be directly addressed to the provider for clarification. History of Present Illness Attending Physician: Lino Marshall MD, PhD History of Present Illness 57-year-old present to the hospital with chest pain Past medical history: Chronic low back pain on morphine as well as Flexeril Patient had a heart alert and was taken to the [facility] Patient is in the ICU for further care At the time of examination patient systolic blood pressure was in the 130s, heart rate in the mid 100s He was in distress complaining of pain when he takes deep breath. It was not reproducible on palpation Also complaining of some reflux. Patient has been complaining of chest pain since Wednesday of last week on and off which was getting progressively worse. It is retrosternal sometimes radiating to the left shoulder No exacerbating or relieving factors. When he got nitroglycerin in the ER it did help Patient has chronic lower back pain for which he takes morphine along with Flexeril. Denied any headache or dizziness. No shortness of breath, no coughing No fever or chills No dysuria, no diarrhea Social history: Greater than [id number] smoking history, currently smoking 1 and half pack a day. 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 Allergies Allergy/AdvReac Type Severity Reaction Status Date / Time oxycodone Allergy Severe SHORTNESS Verified 10/06/22 09:16 OF BREATH Penicillins Allergy Intermediate RASH Verified 10/06/22 09:16 hydrocodone Allergy Unknown Thrush Verified 10/06/22 09:16 Iodinated Contrast Media AdvReac Mild Myelogram Verified 10/06/22 09:16 dye - bleeding Home Medications Medication Instructions Recorded Confirmed Type acetaminophen 500 mg tablet 1,000 mg PO Q6H PRN 03/17/18 10/06/22 History (Tylenol Extra Strength) docusate sodium 100 mg capsule 100 mg PO DAILY 03/17/18 10/06/22 History (Colace) ibuprofen 200 mg tablet (Advil) 600 mg PO Q6H PRN 03/17/18 10/06/22 History omeprazole 40 mg capsule,delayed 40 mg PO DAILY 03/17/18 10/06/22 History release thiamine HCl (vitamin B1) 100 mg 100 mg PO DAILY 07/29/20 10/06/22 History tablet naloxone 4 mg/actuation nasal spray 1 spray intranasal Q3M PRN opioid 06/25/22 10/06/22 Rx overdose #2 ea cyclobenzaprine 10 mg tablet 10 mg PO TID PRN muscle spasm #90 10/06/22 10/06/22 Rx tabs morphine 15 mg immediate release 15 mg PO QID PRN pain #120 tabs 10/06/22 10/06/22 Rx tablet Patient History Medical History (Updated 10/13/22 @ 15:57 by Kimberly Mcgee MD, [facility]) Acid reflux Cervical radiculopathy Cervical spondylosis GERD (gastroesophageal reflux disease) HPV in male Inguinal hernia Non-ST elevation AR (NSTEMI) Paresthesia of left upper extremity Tonsil cancer (05/18/14) "Status post left tonsillectomy stage TI N2b M0 Status post FNA of left neck Status post left robotic radical tonsillectomy, right robotic tonsillectomy and left selective neck dissection levels 2 through 4 on 06/22/2013. 3 of 37 nodes were positive with extra-robert extension. Positive lymph nodes at level II. Pathologic stage [id number] that T staging was T1 at initial surgery. 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 Feels Safe at Home: Yes Safety Concerns: Feels Safe At This Time Review of Systems Review of Systems: All systems reviewed & are unremarkable except as noted in HPI & below Physical Exam Physical Exam: Constitutional: In mild distress secondary to chest pain HEENT: EOMI, PERRLA Respiratory system: Decreased air entry bilaterally, no wheeze, no rhonchi, mild crackles bilateral lower lobes CVS: S1-S2 positive, no murmurs or gallops, distant heart sounds Abdomen: Soft, nontender, nondistended, positive bowel sounds x4 Extremities: +2 pulses bilaterally radialis/ dorsalis pedis, no cyanosis, no edema Neuro: Awake alert oriented x3 Psych: Normal mood and affect G/U: No Godinez Skin: no rashes, warm and dry Lymphatic: no cervical or axillary lymphadenopathy Results & Data Results & Data Vital Signs (Past 12 Hours) Vital Signs Temp Pulse Pulse Resp BP BP Pulse Ox 10/13/22 09:15 100 H 16 144/92 H 97 10/13/22 09:00 110 H 16 151/102 H 98 10/13/22 08:00 107 H 20 96 10/13/22 08:00 139/93 10/13/22 07:36 142/92 H 10/13/22 07:36 104 H 24 97 10/13/22 07:33 103 H 21 96 10/13/22 07:33 140/96 10/13/22 07:02 100 H 33 H 99 10/13/22 07:52 107 H 10/13/22 07:36 104 H 20 142/92 H 97 10/13/22 07:09 104 H 20 95 10/13/22 07:09 103 H 20 142/86 H 97 10/13/22 06:35 36.5 C 111 H 18 136/72 98 O2 Del Method 10/13/22 09:15 Room Air 10/13/22 09:00 Room Air 10/13/22 08:00 10/13/22 08:00 10/13/22 07:36 10/13/22 07:36 10/13/22 07:33 10/13/22 07:33 10/13/22 07:02 10/13/22 07:52 10/13/22 07:36 Room Air 10/13/22 07:09 Room Air 10/13/22 07:09 Room Air 10/13/22 06:35 Room Air Laboratory Results 10/13/22 06:59 10/13/22 06:59 Coding Level of Care Code 93071 IN/OBS CONSULT LVL 5,80M Diagnoses ST elevation AR (STEMI) I21.3 Chest pain R07.[address] elevation (STEMI) myocardial infarction involving left anterior descending coronary artery I21.02 Coronary artery disease I25.10 Lumbar post-laminectomy syndrome M96.1 Current smoker F17.200 Transaminitis R74.01
--- NOTE | 2022-10-13 10:20 | Cardiology Consultation ---
Date of Consultation October 13, 2022 Assessment & Plan (1) Atherogenic dyslipidemia: We will obtain a fasting lipid panel. He is initiated on a atorvastatin 40 mg p.o. daily. He is considered high risk and under current guidelines aggressive LDL reduction target of greater than or equal to 50% of untreated baseline LDL is recommended. (2) Coronary artery disease: Severe total occlusion of the mid LAD. Mild to moderate nonocclusive disease in the circumflex. We will initiate guideline directed medical therapy for secondary prevention of coronary disease including; low-dose aspirin, a atorvastatin 40 mg daily, and metoprolol tartrate 25 mg p.o. twice daily. We will titrate these medications and consider addition of ANU inhibitor/ARB once we have his labs for review and see his response to initial therapy. (3) Benign essential hypertension: Blood pressure was elevated in the Sack Cleaning Hand. The invasive blood pressure was much higher than the cuff pressure. He is initiated on metoprolol tartrate 25 mg p.o. twice daily. Consider ANU inhibitor/ARB. We can also utilize a long- acting nitrate if necessary to improve microvascular dysfunction (antianginal) as well as blood pressure control. (4) ST elevation (STEMI) myocardial infarction involving left anterior descending coronary artery: This seems to be a late presenting/subacute infarction. Lesion was not safely amenable to PCI. Patient has very elevated troponin as well as significant wall motion abnormalities on the echocardiogram. Conservative medical management is recommended. Aspirin, beta-sonia, statin, heparin drip. We will need to reassess viability of this distribution. If significant viability then a LORA to LAD bypass graft would be reasonable or attempted LIBRARY DIRECTOR PCI can be made at a tertiary center. He had only minimal collateral flow so I suspect there will not be any significant viability. He is still at risk for mechanical complication of myocardial infarction so should remain in the ICU and we will monitor closely. Should he develop mechanical complication I do recommend transfer to tertiary center with cardiac surgical services. Do not add Plavix or Brilinta at this time as this would only delay surgery if needed. He did rec eive Brilinta in the emergency department. (5) Ischemic cardiomyopathy: Initial review of the echo suggested reduced EF. I will completely review study and make additional recommendations pending overall assessment with regard to heart failure regimen and potential need for LifeVest/ICD. We will be cautious to avoid excessive IV fluid resuscitation. Most likely he will need heart failure indicated beta-sonia (convert metoprolol to tartrate to metoprolol succinate) and may also need Entresto/ANU inhibitor/ARB. Plan I will continue to follow, reassess, and make additional recommendations. History of Present Illness Reason for Consultation: Chest pain, acute PR Attending Physician: Lino Marshall MD, PhD History of Present Illness 57-year-old gentleman who came to the emergency department this morning for complaints of " gas and pressure" along his lower costal margin. An EKG was obtained. This demonstrated significant abnormalities suggestive of acute anterolateral myocardial infarction. A "heart alert" was called. On my arrival patient had persistent chest discomfort. He told me that he had actually been having the discomfort since yesterday at around 11 AM. Furthermore, he has had the chest discomfort on and off for at least the last week and had a protracted episode the week preceding his evaluation in the emergency department. In speaking with his Linda, she told me that last week his daughter found him laying in the living room, awake complaining of pain, nausea, vomiting, and diaphoresis. He has been feeling poorly since that time. She states that he he kept blaming it on his gut secondary to his chronic opioid use. I reviewed the EKG which demonstrated large Q waves in the anterolateral leads with ST elevations. There were no reciprocal ischemic changes in the other leads. An echo was performed before my arrival. I briefly reviewed the images which demonstrated akinesis of the mid to distal anteroseptal, apex, and lateral and anterior myocardium. This was suggestive of LAD territory myocardial infarction of unknown onset. Patient told me that his chest pain was worse with deep in spiration. However, because he continued with baseline chest discomfort decision was made to take him emergently to the cardiac catheterization suite. In the catheterization suite coronary angiography revealed 100% occlusion of the mid LAD just distal to the diagonal and a large first septal. Attempts were made to cross the lesion but these were unsuccessful. The lesion behaved like a chronic total occlusion or subacute total occlusion. We were unable to safely attempt PCI. Given these findings and the history suggestive of myocardial infarction over a week ago we decided the patient should be on medical therapy rather than risk complication of PCI at this institution without cardiac surgical backup. Patient has been started on aspirin, beta-sonia, statin, the heparin drip after bolus was started postprocedure, the echo will be reviewed and additional recommendations made. Patient is also provided nonsteroidal for the pleuritic component of his chest discomfort and morphine for additional pain relief. Hospitalist will direct the noncardiac portion of his care. Allergies Allergy/AdvReac Type Severity Reaction Status Date / Time oxycodone Allergy Severe SHORTNESS Verified 10/06/22 09:16 OF BREATH Penicillins Allergy Intermediate RASH Verified 10/06/22 09:16 hydrocodone Allergy Unknown Thrush Verified 10/06/22 09:16 Iodinated Contrast Media AdvReac Mild Myelogram Verified 10/06/22 09:16 dye - bleeding Home Medications Medication Instructions Recorded Confirmed Type acetaminophen 500 mg tablet 1,000 mg PO Q6H PRN 03/17/18 10/06/22 History (Tylenol Extra Strength) docusate sodium 100 mg capsule 100 mg PO DAILY 03/17/18 10/06/22 History (Colace) ibuprofen 200 mg tablet (Advil) 600 mg PO Q6H PRN 03/17/18 10/06/22 History omeprazole 40 mg capsule,delayed 40 mg PO DAILY 03/17/18 10/06/22 History release thiamine HCl (vitamin B1) 100 mg 100 mg PO DAILY 07/29/20 10/06/22 History tablet naloxone 4 mg/actuation nasal spray 1 spray intranasal Q3M PRN opioid 06/25/22 10/06/22 Rx overdose #2 ea cyclobenzaprine 10 mg tablet 10 mg PO TID PRN muscle spasm #90 10/06/22 10/06/22 Rx tabs morphine 15 mg immediate release 15 mg PO QID PRN pain #120 tabs 10/06/22 10/06/22 Rx tablet Patient History Medical History (Updated 10/13/22 @ 10:56 by Lino Marshall MD, PhD) Acid reflux Cervical radiculopathy Cervical spondylosis GERD (gastroesophageal reflux disease) HPV in male Inguinal hernia Non-ST elevation PR (NSTEMI) Paresthesia of left upper extremity Tonsil cancer (05/18/14) "Status post left tonsillectomy stage TI N2b M0 Status post FNA of left neck Status post left robotic radical tonsillectomy, right robotic tonsillectomy and left selective neck dissection levels 2 through 4 on 06/22/2013. 3 of 37 nodes were positive with extra-robert extension. Positive lymph nodes at level II. Pathologic stage [id number] that T staging was T1 at initial surgery. 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 Sclera are anicteric. ENMT: Oral mucosa is pink and dry Neck: No JVD Respiratory: Clear to auscultation bilaterally. Fair air movement. Cardiovascular: Regular rhythm with a tachycardic rate. Musculoskeletal: no cyanosis or clubbing, extremities motor strength 5/5 Right radial access site is intact TR band in place. Neurologic: Cognition intact. Speech fluent. No focal deficits. No tremor. Psychiatric: A+Ox3, euthymic affect Results & Data Vital Signs (Past 12 Hours) Vital Signs Temp Pulse Pulse Resp BP BP Pulse Ox 10/13/22 09:15 100 H 16 144/92 H 97 10/13/22 09:00 110 H 16 151/102 H 98 10/13/22 08:00 107 H 20 96 10/13/22 08:00 139/93 10/13/22 07:36 142/92 H 10/13/22 07:36 104 H 24 97 10/13/22 07:33 103 H 21 96 10/13/22 07:33 140/96 10/13/22 07:02 100 H 33 H 99 10/13/22 07:52 107 H 10/13/22 07:36 104 H 20 142/92 H 97 10/13/22 07:09 104 H 20 95 10/13/22 07:09 103 H 20 142/86 H 97 10/13/22 06:35 36.5 C 111 H 18 136/72 98 O2 Del Method 10/13/22 09:15 Room Air 10/13/22 09:00 Room Air 10/13/22 08:00 10/13/22 08:00 10/13/22 07:36 10/13/22 07:36 10/13/22 07:33 10/13/22 07:33 10/13/22 07:02 10/13/22 07:52 10/13/22 07:36 Room Air 10/13/22 07:09 Room Air 10/13/22 07:09 Room Air 10/13/22 06:35 Room Air PG Care Time/CCT Total # of Minutes Spent Total Time Spent with Patient: Total time spent is greater than 50% in coordination of care (as documented) at patient's floor/unit and/or counseling patient: A total of 70 minutes critical care time was spent in the initial evaluation/examination of the patient, discussion with the patient, spouse, and care team. Also included is review of the records, formulation and implementation of a plan of care, and all associated documentation. This is exclusive of the time spent for the procedure. Coding Level of Care Code 93148 CRITICAL CARE 1ST 30-74M Diagnoses Atherogenic dyslipidemia E78.5 Coronary artery disease I25.10 Benign essential hypertension I10 ST elevation (STEMI) myocardial infarction involving left anterior descending coronary artery I21.02 Ischemic cardiomyopathy I25.5
--- NOTE | 2022-10-13 11:00 | Pre Anesthesia Assessment ---
Date of Service October 13, 2022 Pre Sedation Assessment Vital Signs Temp Pulse Pulse Resp BP BP Pulse Ox 10/13/22 09:15 100 H 16 144/92 H 97 10/13/22 09:00 110 H 16 151/102 H 98 10/13/22 08:00 107 H 20 96 10/13/22 08:00 139/93 10/13/22 07:36 142/92 H 10/13/22 07:36 104 H 24 97 10/13/22 07:33 103 H 21 96 10/13/22 07:33 140/96 10/13/22 07:02 100 H 33 H 99 10/13/22 07:52 107 H 10/13/22 07:36 104 H 20 142/92 H 97 10/13/22 07:09 104 H 20 95 10/13/22 07:09 103 H 20 142/86 H 97 10/13/22 06:35 36.5 C 111 H 18 136/72 98 O2 Del Method 10/13/22 09:15 Room Air 10/13/22 09:00 Room Air 10/13/22 08:00 10/13/22 08:00 10/13/22 07:36 10/13/22 07:36 10/13/22 07:33 10/13/22 07:33 10/13/22 07:02 10/13/22 07:52 10/13/22 07:36 Room Air 10/13/22 07:09 Room Air 10/13/22 07:09 Room Air 10/13/22 06:35 Room Air Cardiovascular Additional Comments: Sinus tachycardia Respiratory normal respiratory effort, lungs clear to auscultation Pre-Sedation Airway Assessment Smoking Status: Current every day smoker Class II Class IV Notes The planned sedation has been discussed with the patient. Informed Consent was obtained. I have identified the patient, determined the appropriateness of sedation and have assessed the patient immediately prior to the procedure. All medicine(s) and interventions are by my order.
--- NOTE | 2022-10-13 11:02 | Post Anesthesia Assessment ---
Date of Service October 13, 2022 Post Sedation Assessment Vital Signs Temp Pulse Pulse Resp BP BP Pulse Ox 10/13/22 09:15 100 H 16 144/92 H 97 10/13/22 09:00 110 H 16 151/102 H 98 10/13/22 08:00 107 H 20 96 10/13/22 08:00 139/93 10/13/22 07:36 142/92 H 10/13/22 07:36 104 H 24 97 10/13/22 07:33 103 H 21 96 10/13/22 07:33 140/96 10/13/22 07:02 100 H 33 H 99 10/13/22 07:52 107 H 10/13/22 07:36 104 H 20 142/92 H 97 10/13/22 07:09 104 H 20 95 10/13/22 07:09 103 H 20 142/86 H 97 10/13/22 06:35 36.5 C 111 H 18 136/72 98 O2 Del Method 10/13/22 09:15 Room Air 10/13/22 09:00 Room Air 10/13/22 08:00 10/13/22 08:00 10/13/22 07:36 10/13/22 07:36 10/13/22 07:33 10/13/22 07:33 10/13/22 07:02 10/13/22 07:52 10/13/22 07:36 Room Air 10/13/22 07:09 Room Air 10/13/22 07:09 Room Air 10/13/22 06:35 Room Air Recovery Score Activity: Moves 4 extremities Respiration: Deep Breath/Cough Circulation: +/-20% PreAnes Value Consciousness: Fully Awake Oxygen Saturation: > 92% On Room Air Post Anesthesia Score: 10 Discharge Sedation Level of Care: Fast Track Phase II Post Sedation Plan On clinical assessment, the patient appears to have tolerated the sedation without complications. Patient is recovering as anticipated. Patient will continue to be monitored by nursing and may be discharged when sedation discharge criteria are met per below protocol. Upon Completions of procedure up to 15 minutes continue every 5 minute vital signs and the P.A.R. score; then discharge to a Phase I or Fast Track to Phase II per the following guidelines: * Discharge Patient to appropriate Phase II area if PAR is 8 or greater or return to pre- procedure baseline. The post - procedure orders will be as directed. * If PAR score is less than 8 or not return to pre-procedure baseline then patient will follow Phase I monitoring till PAR is reached for Phase II. The Phase I may be done in procedure room or may call to secure a Phase I area. * If naloxone or flumazenil are used for reversal, hold in Phase I for c ontinued monitoring from when last reversal dose was given for a minimum of 60 minutes or longer pending the nurse and/or physician discretion of patient condition before discharge to Phase II. Please call the Sedation Physician to re-evaluate and complete post-note for discharge to Phase II area. Do NOT discharge from procedure sedation or Phase 1 until post- sedation evaluation note is complete by procedure /sedation MD Sedation Discharge Instructions to be given to the patient at discharge to home. [facility] [place] Procedure Codes (Charges) Indication for Procedure Indication for procedure: Myocardial infarction Sedation/Anesthesia Procedure 1: Sedation/Anesthesia: 28218 Mod Sedation by the same physician;Init15 Min Child Age 5 & Up (Initial 15 minutes (start time 0820)) Total Sedation Time (minutes): 27 Procedure 2: Sedation/Anesthesia: 12438 Mod Sedation by the same physician; Ea [id number] Minutes (Additional 12 min (end time 0847)) Total Sedation Time (minutes): 27
[2022-10-13] MEDS: METOPROLOL TARTRATE 25 MG TAB PO SCH ×2 (11:06→21:16)
[2022-10-13] MEDS: ATORVASTATIN 40 MG TAB PO SCH (11:06)
[2022-10-13] MEDS ORDERED: ALUMINUM/MAGNESIUM SUSP 30 ML UDC PO STA (11:06)
[2022-10-13] MEDS ORDERED: NITROGLYCERIN SL 0.4 MG/TAB TAB SL PRN (11:10)
[2022-10-13 11:17] LABS: Magnesium 2.1 mg/dl (1.7-2.4)
[2022-10-13 11:22] LABS: Phosphorus 3.4 mg/dl (2.5-4.9)
--- NOTE | 2022-10-13 11:28 | Cardiac Catheterization ---
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 Cardiac Status Clinical evaluation leading to the procedure CAD Presenation: STEMI Anginal Classification: CCS IV Heart Failure: NYHA Class: CCS III Cardiogenic Shock within 24 Hours: No Cardiac Arrest within 24 Hours: No Imaging Studies Past 6 Months: No Stress Studies Past 6 Months: No STEMI OR Non-STEMI Symptom Onset Date: 10/12/22 Symptom Onset Time: 11:00 Thrombolytics: No Coronary Anatomy Dominant: Left Left Main (% Stenosis): Normal LAD (% Stenosis): Mid (100%) D1 (% Stenosis): Normal Circumflex (% Stenosis): Distal (Focal 50%) and Normal (Diffuse mild) OM1 (% Stenosis): Normal OM2 (% Stenosis): Normal OM3 (% Stenosis): Normal L PL1 (% Stenosis): Normal L PL2 (% Stenosis): Normal L PDA (% Stenosis): Normal RCA (% Stenosis): Normal Diagnostic Physicians Name: Lino Marshall MD, PhD Closure Device Percutaneous Entry Location: Radial Closure Device: Radial Band Recommendations: Medical Therapy and/or Counseling PCI Indication: PCI for STEMI - Stable First Noted: First EKG Lesion Segment Name: Mid LAD Culprit Artery: Yes Stenosis Prior to Rx (%): 100% Chronic Total Occlusion: Yes Pre-Procedure INDIRA Flow: 0 Previously Treated Lesion: No Thrombus Present: No Guidewire Across Lesion: No Intraprocedure Events Significant Disection: No Perforation: No Cardiac Cath Procedure Full Procedure Date October 13, 2022 Pre-Procedure Diagnosis Pre-Procedure Diagnosis: STEMI AUC Score AUC Score: 09 Post-Procedure Diagnosis Post-Procedure Diagnosis: Severe CAD and Unsuccessful PCI Procedure(s) Performed Procedure(s) Performed: Coronary Angiography Ampoule Filler And Sealer Lino Marshall MD, PhD Estimated Blood Loss Estimated Blood Loss: 5 mL Medication(s) Medication(s): Fentanyl, Heparin, Lidocaine 1%, Nicardipine, Nitroglycerin and Versed Summary of Findings Brief description: Patient was brought to the cardiac catheterization suite where he was shaved and prepped in a sterile fashion. Sedated using IV Versed and fentanyl. Soft tissues of the right wrist were anesthetized using 2 mils of 1% Xylocaine. The right radial artery was accessed using a modified Seldinger technique and a 6 [place]guill[place] radial artery glide sheath was placed. Patient was provided anticoagulation with IV heparin and antispasmodics including nicardipine and nitroglycerin. All catheters were advanced and exchanged over a 0.035 J-tip wire. Left coronary angiography was performed in orthogonal views with a 6 [place]guillan EBU 3.0 guide catheter. Right coronary angiography was performed in orthogonal views with a 5 [place] JR4 diagnostic catheter. Attempted PCI was undertaken using the 6 Anguillan EBU 3.0 guide catheter. A BMW universal guidewire was advanced through the guide catheter but could not cross the lesion in the LAD. It was therefore exchanged for a BiondVax guidewire which also was unable to cross the lesion. Finally, a master pilot hydrophilic guidewire was advanced. It also did not initially cross the "cap" of the lesion. It was eventually able to be advanced across the but the wire had a tactile feel of being subintimal and it buckled with forward pressure. It was retracted and reattempted multiple times. However, we could not safely ad bella the guidewire. Because the lesion was at best subacute and probably chronic total occlusion by its behavior and we have no cardiac surgical backup in this institution, decision was made to abandon further attempts to cross the lesion. The risks of perforation/complication seem to greatly outweigh the anticipated benefit of PCI to this late presenting occlusion. Medical management was therefore our primary strategy and this was discussed with the patient. Therefore, the guidewire was removed from the patient. The guide catheter was then removed and the diagnostic right coronary angiography was completed as above. Radial artery sheath was removed. Hemostasis was obtained using the TR band. Patient remained hemodynamically stable. He was subsequently admitted to the intensive care unit. This ended the case. Coronary angiography: [id number]-iwriatu vessel bifurcating into LAD and circumflex. No significant disease. LAD- Large caliber. Provides a medium caliber first diagonal and a medium to large caliber septal trunk. Proximal segment has mild luminal irregularities. Then, just after the diagonal ostium there is a flat 100% occlusion. INDIRA 0 flow. There is some late staining distal to this occurring via faint left to left collateralization. LCx- This is a large caliber and dominant vessel. Travels in the AV groove where the first obtuse marginal is large and branching. It arises high off the circumflex. The AV groove vessel has mild diffuse disease in the proximal, mid, and early distal vessel. After the OM1 there is a small to medium caliber OM 2 and then a small caliber OM 3. Beyond the OM 3 the AV groove vessel remains large and there is a focal 50% stenosis. Then, a large branching posterolateral arises followed by 2 small posterolateral branches and finally the circumflex terminates in a large caliber long PDA. These distal branch vessels have no an giographically significant disease. RCA- Medium caliber and nondominant. No significant disease. PCI: Flat cap occlusion occurring at the bifurcation of diagonal which is resistant to wire passage and there is no evidence of recent thrombus suggests this is a chronic total or subtotal occlusion. Unable to safely pass standard coronary guide wires Hydrophilic guidewire was able to pass the cap, however, not into the lumen and inadequately to introduce a balloon. There was no evidence of perforation post wire passage Unsuccessful attempted PCI Summary: Late presenting/subacute myocardial infarction secondary to LAD occlusion Unsuccessful attempted PCI of the LAD lesion Optimize medical therapy In the near future will need to assess viability of the myocardium as if there is significant viability then revascularization via LORA to LAD bypass or high risk GROCERY CLERK CHECKING PCI can be considered at a tertiary center. Hemodynamics Rest Ao:: 125/86 mmHg Final Ao: 165/84 mmHg LV: Not performed Recommendations Recommendations: Medical Therapy and/or Counseling Radiation Exposure (mGy) 861 mGy, fluoroscopy time 8.1 minutes Contrast (mls) 75 mL Anesthesia 1 mg IV Versed, 25 mcg IV fentanyl Procedural Complication(s) None Disposition ICU I attest to the content of the Intraoperative Record and any orders documented therein. Any exceptions are noted below. [facility] Card Cath Procedure Codes Cardiac Catheterization Procedure 1: Cardiovascular Cath Procedures: 61093 Coronaries Moderate Sedation Procedure 1: Sedation/Anesthesia: 68757 Mod Sedation by the same physician;Init15 Min Child Age 5 & Up (Initial 15 min, total 27 min. Start 0820 end 0847) Procedure 2: Sedation/Anesthesia: 86808 Mod Sedation by the same physician; Ea Ad [id number] Minutes (Additional 12 min) PG Care Time/CCT Total # of Minutes Spent Total Time Spent with Patient: Total time spent is greater than 50% in coordination of care (as documented) at patient's floor/unit and/or counseling patient:
[2022-10-13] MEDS: PANTOprazole 40 MG TAB PO SCH (11:38)
[2022-10-13] MEDS: NITROGLYCERIN 2% OINTMENT 30GM TUBE EXT SCH ×2 (12:33→17:40)
--- NOTE | 2022-10-13 12:49 | History & Physical Report ---
Date of Service October 13, 2022 Assessment & Plan (1) ST elevation NV (STEMI): Plan: P/w 2 days of chest pain, troponin 09904, Q waves and ST elevation on ECG, cardiac cath with subacute to chronic occlusion of LAD ECHO with reduced EF 35%, +WMAs LAD not amenable to PCI--> medically manage Still with ongoing CP but seems more pleuritic in nature likely from post-NV pericarditis as per my d/w Cardiology CTA Chest neg for PE CK 3000 likely secondary to NV Appreciate Cardiology and Local Operator management -admit to ICU for close monitoring for mechanical issues post complex cath -continue heparin gtt, ASA -start atorva, check lipid panel -check HgbA1C in AM -start metoprolol and switch to Toprol XL once dose titrated -consider adding on ACEi -follow CBC, CMP, Mag, phos, CK in AM; trend serial trop till peaks -toradol x 2 days for pleuritic CP, po morphine for pain (2) Ischemic cardiomyopathy: Plan: as above (3) Transaminitis: Plan: 2/2 elevated CK, muscle enzyme breakdown all other LFTs normal follow LFTs, CK (4) Current smoker: Plan: counseled to quit smoking has nicotine patch in place seen b yICU/PULM here who recommends starting maintenance inhaler with cramps in thighs at rest-likely with PAD recommend see Vascular after discharge (5) Coronary artery disease: Plan: as above, severe (6) Cervical radiculopathy: Plan: sees Pain Management continue home po morphine Plan Leukocytosis-no evidence of infection, could be from stress of living with int ense pain x 2 days DVT proph-heparin gtt Dispo-admit to ICU Admission and Anticipated Discharge Date Admission Date: October 13, 2022 History of Present Illness Chief Complaint: Abdominal and chest pain Primary Care Provider: Leatha Mays MD This pt is a 57 yo male with a 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 It is severe in nature and felt like a burning and pressure. It was associated with nausea, throat burning, and was not relieved with antacids as similar but not as severe episodes have been in the past. The symptoms came on with shoveling a dirt pile. In the ER, he was found to have diffuse deep Q waves with some ST [place] [address], elevated AST, leukocytosis of 21k, and hyponatremia with Na+ 131. CXR negative. Limited ECHO views at bedside showed WMAs in anterolat and apex regions. Some of his pain was more pleuritic in nature but was not associated with any hypoxia. He had a CTA Chest and CT abd/pel which showed acute NV in LV, but otherwise fairly unremarkable. 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 It was not amenable to PCI. He had very few collaterals. He was started on heparin gtt and decision made by Cardiology to pursue medical management at this time.He will be admitted to the ICU for close observation of any post-cath complications given complex lesion, new onset HF s/p STEMI that likely occurred 2 days prior. Allergies Allergy/AdvReac Type Severity Reaction Status Date / Time oxycodone Allergy Severe SHORTNESS Verified 10/06/22 09:16 OF BREATH Penicillins Allergy Intermediate RASH Verified 10/06/22 09:16 hydrocodone Allergy Unknown Thrush Verified 10/06/22 09:16 Iodinated Contrast Media AdvReac Mild Myelogram Verified 10/06/22 09:16 dye - bleeding Home Medications Medication Instructions Recorded Confirmed Type acetaminophen 500 mg tablet 1,000 mg PO Q6H PRN 03/17/18 10/06/22 History (Tylenol Extra Strength) docusate sodium 100 mg capsule 100 mg PO DAILY 03/17/18 10/06/22 History (Colace) ibuprofen 200 mg tablet (Advil) 600 mg PO Q6H PRN 03/17/18 10/06/22 History omeprazole 40 mg capsule,delayed 40 mg PO DAILY 03/17/18 10/06/22 History release thiamine HCl (vitamin B1) 100 mg 100 mg PO DAILY 07/29/20 10/06/22 History tablet naloxone 4 mg/actuation nasal spray 1 spray intranasal Q3M PRN opioid 06/25/22 0 10/06/22 Rx overdose #2 ea cyclobenzaprine 10 mg tablet 10 mg PO TID PRN muscle spasm #90 10/06/22 10/06/22 Rx tabs morphine 15 mg immediate release 15 mg PO QID PRN pain #120 tabs 10/06/22 10/06/22 Rx tablet Past Med/Surg History Medical History Acid reflux Allergic rhinitis Cervical radiculopathy Cervical spondylosis Current smoker GERD (gastroesophageal reflux disease) HPV in male Inguinal hernia Non-ST elevation NV (NSTEMI) Paresthesia of left upper extremity Tonsil cancer (05/18/14) "Status post left tonsillectomy stage TI N2b M0 Status post FNA of left neck Status post left robotic radical tonsillectomy, right robotic tonsillectomy and left selective neck dissection levels 2 through 4 on 06/22/2013. 3 of 37 nodes were positive with extra-robert extension. Positive lymph nodes at level II. Pathologic stage [id number] that T staging was T1 at initial surgery. Therefore [id number] " Tonsillar cancer Surgical History H/O vasectomy History of lumbar fusion History of tonsillectomy Family History (Updated 10/13/22 @ 23:43 by Marta Bai MD) Other Family history non-contributory Social History Smoking Status: Current every day smoker Cigarettes Per Day: 40; Hx Alcohol Use: Yes Alcohol type: hard liquor Alcohol Intake Frequency Comment: rare Hx Substance Use: No Preferred Language: Latvian Communication Ability: Effective Visual Impairment: No Limitations Hearing Ability: Normal Dado Operator Required: Yes and No Beliefs That Will Affect Care: None marital status: Current Living Situation: Spouse 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 Feels Safe at Home: Yes Safety Concerns: Feels Safe At This Time Review of Systems Review of Systems: All systems reviewed & are unremarkable except as noted in HPI & below Physical Exam Constitutional: WD/WN, vitals as above Eyes: PERRL, conjunctivae normal, anicteric sclerae ENMT: external ear and nose normal, oropharynx normal Neck: trachea midline, no thyromegaly Respiratory: normal respiratory effort, lungs clear to auscultation Cardiovascular: RRR, no murmur, no edema Vessels: dorsalis pedis pulses present (1+ DP pulses bilat) right wrist with dressing in place over radial cath site c/d/i, no hematoma Chest (Breasts): Chest: normal inspection of chest Gastrointestinal (Abdomen): normal bowel sounds, soft, nontender, no hepatosplenomegaly Musculoskeletal: Extremities: extremities normal to inspection; no cyanosis and no clubbing Skin: no rashes, warm and dry Neurologic: moves all extremities and awake; no focal motor deficits Psychiatric: A+Ox3, euthymic affect Lymphatic: no lymphedema Results & Data Results & Data Vital Signs (Past 12 Hours) Vital Signs Temp Pulse Pulse Resp BP BP Pulse Ox 10/13/22 12:00 100 H 24 99 10/13/22 12:00 124/79 10/13/22 11:45 100 H 24 95 10/13/22 11:45 123/74 10/13/22 11:30 103 H 20 100 10/13/22 11:30 135/95 10/13/22 11:15 104 H 26 H 99 10/13/22 11:15 120/95 10/13/22 09:30 10/13/22 09:53 10/13/22 11:00 104 H 26 H 99 10/13/22 11:00 131/92 10/13/22 10:45 102 H 28 H 98 10/13/22 10:45 132/93 10/13/22 10:30 113 H 24 100 10/13/22 10:30 106/92 10/13/22 10:15 105 H 22 99 10/13/22 10:15 133/96 10/13/22 10:13 131/95 10/13/22 10:13 108 H 22 99 10/13/22 10:00 105 H 17 99 10/13/22 09:45 108 H 21 97 10/13/22 09:34 137/95 10/13/22 09:39 36.6 C 10/13/22 09:15 100 H 16 144/92 H 97 10/13/22 09:00 110 H 16 151/102 H 98 10/13/22 08:00 107 H 20 96 10/13/22 08:00 139/93 10/13/22 07:36 142/92 H 10/13/22 07:36 104 H 24 97 10/13/22 07:33 103 H 21 96 10/13/22 07:33 140/96 05/30/23 07:02 100 H 33 H 99 10/13/22 07:52 107 H 10/13/22 07:36 104 H 20 142/92 H 97 10/13/22 07:09 104 H 20 95 10/13/22 07:09 103 H 20 142/86 H 97 10/13/22 06:35 36.5 C 111 H 18 136/72 98 Pulse Ox O2 Del Method O2 Del Method 10/13/22 12:00 Room Air 10/13/22 12:00 10/13/22 11:45 10/13/22 11:45 10/13/22 11:30 10/13/22 11:30 10/13/22 11:15 10/13/22 11:15 10/13/22 09:30 Room Air 10/13/22 09:53 98 Room Air 10/13/22 11:00 10/13/22 11:00 10/13/22 10:45 10/13/22 10:45 10/13/22 10:30 10/13/22 10:30 10/13/22 10:15 10/13/22 10:15 10/13/22 10:13 10/13/22 10:13 Room Air 10/13/22 10:00 10/13/22 09:45 10/13/22 09:34 10/13/22 09:39 10/13/22 09:15 Room Air 10/13/22 09:00 Room Air 10/13/22 08:00 10/13/22 08:00 10/13/22 07:36 10/13/22 07:36 10/13/22 07:33 10/13/22 07:33 10/13/22 07:02 10/13/22 07:52 10/13/22 07:36 Room Air 10/13/22 07:09 Room Air 10/13/22 07:09 Room Air 10/13/22 06:35 Room Air Laboratory Results CBC, CMP, CK, TSH, troponin reviewed UA reviewed Code Status & VTE Plan Code Status Full Code VTE Prophylaxis Plan VTE Prophylaxis will be ordered: Yes PG Care Time/CCT Total # of Minutes Spent Total Time Spent with Patient: Total time spent is greater than 50% in coordination of care (as documented) at patient's floor/unit and/or counseling patient: Coding Level of Care Code 90277 INT INP/OBS CARE MIN Diagnoses ST elevation NV (STEMI) I21.3 Ischemic cardiomyopathy I25.5 Transaminitis R74.01 Current smoker F17.200 Coronary artery disease I25.10 Cervical radiculopathy M54.12
--- NOTE | 2022-10-13 13:00 | XCELERA ---
[id number] [id number]
[2022-10-13 13:04] LABS: iSTAT Creatinine 1.1 mg/dl (0.6-1.3); iSTAT Hemoglobin 15.3 g/dl (14.0-18.0); iSTAT Ionized Calcium 1.26 mmol/l (1.12-1.32); iSTAT Potassium 3.7 mmol/L (3.3-5.0)
[2022-10-13] MEDS: KETOROLAC TROMETHAMINE 15 MG/ML VIAL IV PRN (13:07)
[2022-10-13] MEDS: NICOTINE 21 MG/24 HR TDSY TD SCH (13:32)
[2022-10-13 13:47] LABS: Magnesium 2.2 mg/dl (1.7-2.4)
[2022-10-13] MEDS: MoRPHine SULFATE 4 MG/ML 1 ML CARP\\VIAL IV PRN ×3 (13:51→23:08)
--- NOTE | 2022-10-13 14:06 | Electrocardiogram Report ---
Test Reason : Blood Pressure : / mmHG Vent. Rate : 098 BPM Atrial Rate : 098 BPM P-R Int : 162 ms QRS Dur : 094 ms QT Int : 310 ms P-R-T Axes : 057 127 081 degrees QTc Int : 395 ms Normal sinus rhythm Low voltage QRS Evolving Anterolateral infarct (cited on or before 13-OCT-2022) Abnormal ECG When compared with ECG of 13-OCT-2022 06:56, Serial changes of evolving Anterolateral infarct Present Confirmed by Phill Catalan ([id number]) on 10/13/2022 2:06:33 PM Referred By: REFERRED SELF Confirmed By:Phill Catalan
[2022-10-13] MEDS ORDERED: ACETAMINOPHEN 1,000 MG/100 ML VIAL IV STA (16:35)
[2022-10-13 17:11] LABS: Partial Thromboplastin Ratio 1.8
[2022-10-13 17:35] LABS: Partial Thromboplastin Time 50.3 Seconds (21.0-31.0)
[2022-10-13] MEDS: [UNRECOGNIZED DRUG - REMARK] SCH (17:41)
[2022-10-13] MEDS: MoRPHine SULFATE IR 15 MG TAB (IMMEDIATE RELEASE) PO PRN (21:15)
[2022-10-13] MEDS: DOCUSATE SODIUM 100 MG CAP PO SCH (21:15)
[2022-10-14] MEDS: MoRPHine SULFATE 4 MG/ML 1 ML CARP\\VIAL IV PRN ×2 (05:00→09:51)
[2022-10-14] MEDS: NITROGLYCERIN 2% OINTMENT 30GM TUBE EXT SCH ×3 (05:00→18:51)
[2022-10-14 05:59] LABS: Albumin Level 3.9 gm/dl (3.4-5.0); Bilirubin Direct 0.2 mg/dl (0-0.2); Calcium 9.5 mg/dl (8.6-10.3); Magnesium 2.4 mg/dl (1.7-2.4); Potassium 4.4 mmol/L (3.5-5.1)
[2022-10-14 06:06] LABS: BUN Creatinine Ratio 13.8 (10-20); Basophils # (auto) 0.02 K/uL (0-0.2); Basophils % (auto) 0.1 %; Chol HDL Ratio 3.4 (0-5); Creatinine Clr Calc Pharmacy 72.3 ml/min; Est GFR (African American) 76.1 ml/min; Est GFR (Non-African American) 65.7 ml/min; Hematocrit (blood only) 38.7 % (42.0-52.0); Hemoglobin 12.9 g/dl (14.0-18.0); Immature Granulocytes # (auto) 0.13 K/uL (0.01-0.20); Immature Granulocytes % (auto) 0.8 %; Lymphocytes # (auto) 1.22 K/uL (1.2-3.4); Lymphocytes % (auto) 7.1 %; Mean Corpuscular Hemoglobin 31.8 pg (25.0-34.0); Mean Corpuscular Hgb Conc 33.3 g/dL (32.0-36.0); Mean Corpuscular Volume 95.3 fL (80.0-100.0); Mean Platelet Volume 10.7 fL (9.4-12.4); Monocytes # (auto) 1.66 K/uL (0.11-0.59); Monocytes % (auto) 9.7 %; Neutrophils # (auto) 14.17 K/uL (1.40-6.50); Neutrophils % (auto) 82.3 %; Platelet Count 227 K/uL (130-400); RDW Coefficient of Variation 14.1 % (11.5-14.5); RDW Standard Deviation 49.3 fL (36.4-46.3); Red Blood Count 4.06 M/uL (4.70-6.10); Total Protein 7.2 gm/dl (6.0-8.3)
[2022-10-14 06:41] LABS: Partial Thromboplastin Ratio 1.5
[2022-10-14 06:49] LABS: Partial Thromboplastin Time 43.2 Seconds (21.0-31.0)
[2022-10-14 07:09] LABS: Estimated Average Glucose 108 mg/dl; Hemoglobin A1C 5.4 % (4.5-5.6)
--- NOTE | 2022-10-14 07:31 | Critical Care Progress Note ---
Date of Service October 14, 2022 Assessment & Plan (1) ST elevation [place] (STEMI): (2) Chest pain: (3) Ischemic cardiomyopathy: (4) ST elevation (STEMI) myocardial infarction involving left anterior descending coronary artery: (5) Coronary artery disease: (6) Lumbar post-laminectomy syndrome: (7) Current smoker: (8) Transaminitis: Plan CTA chest 10/13/2022 personally reviewed:Centrilobular emphysema appreciated bilaterally, minimal bilateral apical pleural scarring more on the right Right lower lobe peripheral pleural-based 4 mm pulmonary nodule Dependent atelectasis bilateral lower lobes No pulmonary emboli -- STEMI S/p cardiac cath 10/13/2022, unsuccessful attempted PCI Diagonal ostium of the LAD 100% occlusion Medical management with aspirin, statin, beta-blockers Plavix/Brilinta on hold for possible surgical intervention needed in the near future Troponin peaked at 112K --> trending down, CPK 3655--> trending down TSH 0.6 Trend troponin and EKG Cardiology following --New onset CHF Likely secondary to an MD Strict in and out 2D echo 10/13/2022:EF 30-35%, severe LAD territory wall motion motion abnormality --Transaminitis --> slowly trending down Likely secondary to STEMI Continue to trend --Anginal pain He has been getting morphine and nitroglycerin ESR 26 --COPD and active smoker Greater than [id number] smoking history Not on any inhalers at home Importance of quitting explained to the patient in depth -- Chronic opioid dependence Takes morphine at home Would continue with the same regimen along with laxatives --Leukocytosis --> trending down Likely reactive to STEMI No clear source of infection Continue to trend --Prophylaxis VTE: Heparin drip GI: Pantoprazole Lines: Peripheral Diet: Cardiac Plan: In/out: -403, urine output [address] doing persistent [address] elevation V2-V5. No significant change compared to 10/13/2022 Continue with beta-sonia, nitroglycerin paste, add ANU inhibitor/ARB if the blood pressure is able to tolerate it. Continue with pantoprazole Leukocytosis is trending down. Likely reactive Patient's ESR is only 26, pain does not improve on leaning forward. Unsure if this is pericarditis. Colchicine could be thought of, will defer to cardiology Patient stable to be downgraded out of the ICU to telemetry floor. Case discussed with Dr. Bai Please note the above document was generated using voice recognition software. It may contain grammatical, syntax or spelling errors.Any formal questions or concerns about the content, text or information contained within the body of this dictation should be directly addressed to the provider for clarification. Admission and Anticipated Discharge Date Admission Date: October 13, 2022 Subjective Patient seen and examined at bedside. No acute distress, no adverse events overnight Still complaining of chest pain but it is better controlled compared to before Is retrosternal and epigastric. There is no rebound tenderness Worse when he is taking deep breath in. Improved when he is laying on the right side. No significant change when he is leaning forward. No nausea or vomiting, fair appetite No dizziness. Systolic blood pressure was in the 110s and saturation 97% on room air Review of Systems Review of Systems: All systems reviewed & are unremarkable except as noted in Subjective Physical Exam Physical Exam: Constitutional: In mild distress secondary to chest pain HEENT: EOMI, PERRLA Respiratory system: Decreased air entry bilaterally, no wheeze, no rhonchi, mild crackles bilateral lower lobes CVS: S1-S2 positive, no murmurs or gallops, no rubs, distant heart sounds Abdomen: Soft, nontender, nondistended, positive bowel sounds x4 Extremities: +2 pulses bilaterally radialis/ dorsalis pedis, no cyanosis, no edema Neuro: Awake alert oriented x3 Psych: Normal mood and affect G/U: No Godinez Skin: no rashes, warm and dry Lymphatic: no cervical or axillary lymphadenopathy Results & Data Results & Data Vital Signs (Past 12 Hours) Vital Signs Temp Pulse Pulse Resp BP BP Pulse Ox 10/14/22 07:00 37.1 C 98 H 22 123/71 97 10/14/22 06:00 108/67 10/14/22 05:15 90 40 H 96 10/14/22 05:00 96 H 39 H 111/74 97 10/14/22 04:00 90 45 H 112/67 98 10/14/22 03:30 102 H 32 H 96 10/14/22 03:00 86 24 111/75 98 10/14/22 02:30 92 H 34 H 99 10/14/22 02:05 94 H 33 H 100/67 97 10/14/22 00:00 88 10/14/22 01:15 110/70 10/14/22 01:00 87 15 97 10/14/22 01:00 102/67 10/14/22 00:45 93 H 33 H 96 10/14/22 00:30 93 H 38 H 97 10/14/22 00:15 92 H 23 96 10/14/22 00:00 89 34 H 97 10/14/22 00:00 99/65 L 10/13/22 23:45 94 H 43 H 87 L 10/13/22 23:00 92 H 38 H 93/59 L 98 10/13/22 22:00 93 H 22 114/75 93 10/13/22 21:00 91 H 22 110/68 97 10/13/22 20:00 92 H 24 99/66 L 98 10/13/22 19:45 94 H 18 105/68 98 10/13/22 20:00 10/13/22 23:02 89 O2 Del Method 10/14/22 07:00 Room Air 10/14/22 06:00 10/14/22 05:15 10/14/22 05:00 10/14/22 04:00 10/14/22 03:30 10/14/22 03:00 10/14/22 02:30 10/14/22 02:05 10/14/22 00:00 10/14/22 01:15 10/14/22 01:00 10/14/22 01:00 10/14/22 00:45 10/14/22 00:30 10/14/22 00:15 10/14/22 00:00 10/14/22 00:00 10/13/22 23:45 10/13/22 23:00 10/13/22 22:00 10/13/22 21:00 10/13/22 20:00 10/13/22 19:45 10/13/22 20:00 Room Air 10/13/22 23:02 Laboratory Results 10/14/22 04:39 Coding Level of Care Code 98856 SUB INP/OBS CARE 3/50MIN Diagnoses ST elevation MD (STEMI) I21.3 Chest pain R07.[address] elevation (STEMI) myocardial infarction involving left anterior descending coronary artery I21.02 Coronary artery disease I25.10 Lumbar post-laminectomy syndrome M96.1 Current smoker F17.200 Transaminitis R74.01
[2022-10-14] MEDS: UMECLIDINIUM BROMIDE 62.5MCG/BLISTER 7 PUFFS/INHALER INH SCH (07:40)
[2022-10-14] MEDS: NICOTINE 21 MG/24 HR TDSY TD SCH (07:41)
[2022-10-14] MEDS: METOPROLOL TARTRATE 25 MG TAB PO SCH ×2 (07:41→20:06)
[2022-10-14] MEDS: DOCUSATE SODIUM 100 MG CAP PO SCH ×2 (07:41→20:06)
[2022-10-14] MEDS: ATORVASTATIN 40 MG TAB PO SCH (07:41)
[2022-10-14] MEDS: ASPIRIN 81 MG ECTAB PO SCH (07:41)
[2022-10-14] MEDS: PANTOprazole 40 MG TAB PO SCH (07:42)
[2022-10-14] MEDS: HEPARIN SODIUM/DEXTROSE 25,000 UNITS/500 ML BAG IV SCH (07:42)
--- NOTE | 2022-10-14 08:13 | Electrocardiogram Report ---
Test Reason : Blood Pressure : / mmHG Vent. Rate : 094 BPM Atrial Rate : 094 BPM P-R Int : 146 ms QRS Dur : 096 ms QT Int : 376 ms P-R-T Axes : 019 125 073 degrees QTc Int : 470 ms Normal sinus rhythm Low voltage QRS Borderline Criteria for Inferior infarct Evolving Anterolateral infarct (cited on or before 13-OCT-2022) Abnormal ECG When compared with ECG of 13-OCT-2022 13:25, No significant change Confirmed by Phill Catalan ([id number]) on 10/14/2022 8:13:45 AM Referred By: REFERRED SELF Confirmed By:Phill Catalan
[2022-10-14] MEDS: MoRPHine SULFATE IR 15 MG TAB (IMMEDIATE RELEASE) PO PRN (10:30)
[2022-10-14] MEDS: THIAMINE HCL 100 MG TAB PO SCH (12:19)
[2022-10-14] MEDS ORDERED: COLCHICINE 0.6 MG TAB PO ONE (14:20)
[2022-10-14] MEDS: KETOROLAC TROMETHAMINE 15 MG/ML VIAL IV PRN ×2 (14:24→20:56)
--- NOTE | 2022-10-14 15:06 | Cardiology Progress Note ---
Date of Service October 14, 2022 Assessment & Plan (1) Hypertension: Plan: Blood pressure is currently at target. Continue regimen. (2) ST elevation [place] (STEMI): Plan: Late presenting. Unable to safely perform PCI. Significant troponin elevation but also perpetual chest pain which is pleuritic and suggestive of pericarditis/Maki syndrome. He will remain on guideline directed medical therapy for secondary prevention of coronary disease with aspirin, beta-sonia, and statin. Plan for viability evaluation after discharge. (3) Chest pain: Plan: Pleuritic in nature. His echo, EKG, and coronary angiography also for late presenting (subacute) infarction complicated by pericarditis. He will remain on home dose morphine plus supplemental IV morphine as needed for pain. Additionally, Toradol will be scheduled as will colchicine. (4) Ischemic cardiomyopathy: Plan: EF 30 to 35%. We are optimizing his medical therapy. He will be on heart failure indicated beta-sonia, and consider ANU/ARB/Entresto plus spironolactone plus or minus SGLT2 inhibitor. Has not required loop diuretic. Should be considered for a LifeVest prior to discharge. (5) Atherogenic dyslipidemia: Plan: Patient is high risk. High intensity statin therapy recommended. Continue atorvastatin with target LDL reduction of greater than or equal to 50% untreated baseline LDL. Last LDL was 101. Plan Okay for stepdown to PCU. Continue pain management Should patient take a turn for the worse we may need to consider transfer to tertiary center. If he remains stable and he improves from a chest pain standpoint then he will likely be appropriate for discharge in the next 48 hours. After viability study completed referral to tertiary center if indicated. Admission and Anticipated Discharge Date Admission Date: October 13, 2022 Subjective Patient has continued to complain of chest discomfort which is waxing and waning in severity. He notes worse when lying on his side or taking deep breaths. He has not been receiving any nonsteroidals, colchicine, and has only been on home morphine dose with occasional additional morphine supplementation. His and daughter are present in the room today. We discussed plans to increase his pain regimen as well as long-term evaluation for myocardial viability as an outpatient. Then, pending results we would make referral to tertiary center if viable myocardium in the LAD territory for either [facility] PCI or LORA to LAD bypass graft. If no significant viable myocardium then little anticipated benefit and he we will continue with secondary preventive medications. Review of Systems Review of Systems: Negative except as per HPI Physical Exam Constitutional: WD/WN, vitals as above (He is currently somnolent. Resting comfortably.) Eyes: Extraocular muscles intact. Sclera anicteric. ENMT: Oral mucosa is pink moist and intact. Neck: No JVD Respiratory: Clear to auscultation bilaterally. No wheezing, rhonchi, or rales. Cardiovascular: Regular rate and rhythm. Sinus rhythm on the monitor. S4 gallop. Soft systolic murmur. Neurologic: Somnolent but arousable. No focal deficits. Psychiatric: A+Ox3, euthymic affect Results & Data Vital Signs (Past 12 Hours) Vital Signs Temp Pulse Pulse Resp BP BP Pulse Ox 10/14/22 11:00 89 17 96 10/14/22 11:00 95/57 L 10/14/22 10:00 85 26 H 97 10/14/22 10:00 98/72 L 10/14/22 09:58 87 24 96 10/14/22 09:58 102/72 10/14/22 11:30 36.8 C 10/14/22 09:45 90 29 H 96 10/14/22 09:45 105/69 10/14/22 09:30 88 42 H 97 10/14/22 09:30 93/57 L 10/14/22 09:15 91 H 47 H 96 10/14/22 09:15 112/71 10/14/22 09:00 96 H 28 H 95 10/14/22 09:00 117/70 10/14/22 08:45 97 H 31 H 95 10/14/22 08:45 115/69 10/14/22 08:30 97 H 31 H 95 10/14/22 08:30 115/75 10/14/22 08:15 95 H 29 H 96 10/14/22 08:15 118/72 10/14/22 08:00 98 H 37 H 96 10/14/22 08:00 110/72 10/14/22 07:45 100 H 27 H 95 10/14/22 07:45 106/68 10/14/22 07:30 104 H 30 H 96 10/14/22 07:30 116/71 10/14/22 07:15 99 H 25 H 97 10/14/22 07:15 121/73 10/14/22 07:00 95 H 27 H 96 10/14/22 07:00 123/71 10/14/22 06:45 93 H 27 H 95 10/14/22 06:45 119/76 10/14/22 06:30 95 H 35 H 95 10/14/22 06:30 112/72 10/14/22 08:00 10/14/22 08:00 10/14/22 08:00 10/14/22 08:00 98 H 10/14/22 07:00 37.1 C 98 H 22 123/71 97 10/14/22 06:00 108/67 10/14/22 05:15 90 40 H 96 10/14/22 05:00 96 H 39 H 111/74 97 10/14/22 04:00 90 45 H 112/67 98 10/14/22 03:30 102 H 32 H 96 Pulse Ox O2 Del Method O2 Del Method 10/14/22 11:00 10/14/22 11:00 10/14/22 10:00 10/14/22 10:00 10/14/22 09:58 10/14/22 09:58 10/14/22 11:30 10/14/22 09:45 10/14/22 09:45 10/14/22 09:30 10/14/22 09:30 10/14/22 09:15 10/14/22 09:15 10/14/22 09:00 10/14/22 09:00 10/14/22 08:45 10/14/22 08:45 10/14/22 08:30 10/14/22 08:30 10/14/22 08:15 10/14/22 08:15 10/14/22 08:00 10/14/22 08:00 10/14/22 07:45 10/14/22 07:45 10/14/22 07:30 10/14/22 07:30 10/14/22 07:15 10/14/22 07:15 10/14/22 07:00 10/14/22 07:00 10/14/22 06:45 10/14/22 06:45 10/14/22 06:30 10/14/22 06:30 10/14/22 08:00 Room Air 10/14/22 08:00 Room Air 10/14/22 08:00 96 Room Air 10/14/22 08:00 10/14/22 07:00 Room Air 10/14/22 06:00 10/14/22 05:15 10/14/22 05:00 10/14/22 04:00 10/14/22 03:30 PG Care Time/CCT Total # of Minutes Spent Total Time Spent with Patient: Total time spent is greater than 50% in coordination of care (as documented) at patient's floor/unit and/or counseling patient: Coding Level of Care Code 33842 SUB INP/OBS CARE 2/35MIN Diagnoses Hypertension I10 ST elevation [place] (STEMI) I21.3 Chest pain R07.9 Ischemic cardiomyopathy I25.5 Atherogenic dyslipidemia E78.5
[2022-10-14] MEDS: COLCHICINE 0.6 MG TAB PO SCH (20:06)
[2022-10-14] MEDS: [UNRECOGNIZED DRUG - REMARK] SCH (20:07)
--- NOTE | 2022-10-14 20:43 | Hospitalist Progress Note ---
Date of Service October 14, 2022 Assessment & Plan (1) ST elevation [place] (STEMI): Plan: P/w 2 days of chest pain, troponin 79093, Q waves and ST elevation on ECG, cardiac cath performed urgently with subacute to chronic occlusion of LAD ECHO with reduced EF 35%, +WMAs, no pericardial effusion LAD not amenable to PCI--> medically manage for now Still with ongoing CP but is certainly pleuritic in nature likely from post-VT pericarditis as per my d/w Cardiology-now much improved with starting colchicine and Toradol CTA Chest neg for PE CK 3000 likely secondary to VT-trending downward Troponin peaked at 112,000 166 No significant arrhythmias on telemetry Lipid panel with total cholesterol 174, LDL 101, HDL 51 Hemoglobin A1c normal at 5.4% Appreciate Cardiology and Group Worker management-stable for downgrade out of ICU -continue heparin gtt, ASA -Continue high intensity atorvastatin -started metoprolol and switch to Toprol XL once dose titrated given cardiomyopathy -consider adding on ACEi/ARB/Entresto plus spironolactone +/- SGLT2 inhibitor -follow CBC, CMP, Mag, phos, CK in AM, replace electrolytes as needed to keep optimized -Started colchicine 0.6 Mg p.o. twice daily, Toradol as needed, morphine as needed pain -Plan for myocardial viability study as an outpatient and referral to tertiary care center if indicated if viable myocardium in the LAD territory -Placed referral to case management for evaluation for LifeVest (2) Maki syndrome: Plan: As above Start colchicine, continue Toradol as needed Morphine as needed (3) Ischemic cardiomyopathy: Plan: as above (4) Transaminitis: Plan: 2/2 elevated CK, muscle enzyme breakdown all other LFTs normal Improving today follow LFTs, CK (5) Current smoker: Plan: counseled to quit smoking has nicotine patch in place seen by ICU/PULM here who recommends starting maintenance inhaler with umeclidinium with cramps in thighs at rest-likely with PAD recommend see Vascular after discharge (6) Coronary artery disease: Plan: as above, severe (7) Cervical radiculopathy: Plan: sees Pain Management continue home po morphine Plan Leukocytosis-no evidence of infection, improving today without any antibiotic therapy, could be from stress of STEMI DVT proph-heparin gtt Dispo-downgrade to PCU Admission and Anticipated Discharge Date Admission Date: October 13, 2022 Subjective Patient feeling so much better with his chest pain since starting colchicine and receiving another dose of Toradol today. Moved his bowels today, is eating. Telemetry with normal sinus rhythm and sinus tachycardia I discussed his care with the delivery driver/customer service-he is stable for downgrade out of ICU to PCU Physical Exam Constitutional: WD/WN, vitals as above Neck: trachea midline, no thyromegaly Respiratory: normal respiratory effort, lungs clear to auscultation Cardiovascular: RRR, no murmur, no edema Chest (Breasts): Chest: normal inspection of chest Gastrointestinal (Abdomen): normal bowel sounds, soft, nontender, no hepatosplenomegaly Musculoskeletal: Extremities: extremities normal to inspection; no cyanosis and no clubbing Skin: no rashes, warm and dry Neurologic: moves all extremities and awake; no focal motor deficits Psychiatric: A+Ox3, euthymic affect Lymphatic: no lymphedema Results & Data Results & Data Vital Signs (Past 12 Hours) Vital Signs Temp Pulse Resp BP Pulse Ox 10/14/22 18:30 93 H 20 95 10/14/22 18:30 103/58 L 10/14/22 18:00 98 H 43 H 94 10/14/22 18:00 102/64 10/14/22 17:30 96 H 40 H 96 10/14/22 17:30 100/61 10/14/22 17:00 95 H 34 H 95 10/14/22 17:00 100/58 L 10/14/22 16:48 92/52 L 10/14/22 16:48 94 H 20 95 10/14/22 16:31 98 H 19 98 10/14/22 16:31 85/51 L 10/14/22 16:30 99 H 22 96 10/14/22 16:06 94/48 L 10/14/22 16:06 92 H 22 95 10/14/22 16:05 95 H 22 95 10/14/22 16:05 87/56 L 10/14/22 16:05 87/56 L 10/14/22 16:00 91 H 21 93 10/14/22 16:00 91/56 L 10/14/22 15:00 93 H 24 95 10/14/22 15:00 105/58 L 10/14/22 14:00 96 H 19 92 10/14/22 14:00 88/53 L 10/14/22 13:00 102 H 28 H 95 10/14/22 13:00 106/65 10/14/22 12:00 96 H 26 H 95 10/14/22 12:00 102/61 10/14/22 16:00 89 10/14/22 11:00 89 17 96 10/14/22 11:00 95/57 L 10/14/22 10:00 85 26 H 97 10/14/22 10:00 98/72 L 10/14/22 09:58 87 24 96 10/14/22 09:58 102/72 10/14/22 11:30 36.8 C 10/14/22 09:45 90 29 H 96 10/14/22 09:45 105/69 10/14/22 09:30 88 42 H 97 10/14/22 09:30 93/57 L 10/14/22 09:15 91 H 47 H 96 10/14/22 09:15 112/71 10/14/22 09:00 96 H 28 H 95 10/14/22 09:00 117/70 10/14/22 08:45 97 H 31 H 95 10/14/22 08:45 115/69 Laboratory Results CBC, BMP, LFTs, CK reviewed Lipid panel reviewed Troponin peaked at 112,466 PG Care Time/CCT Total # of Minutes Spent Total Time Spent with Patient: Total time spent is greater than 50% in coordination of care (as documented) at patient's floor/unit and/or counseling patient: Coding Level of Care Code 54428 SUB INP/OBS CARE 3/50MIN Diagnoses ST elevation [place] (STEMI) I21.3 Maki syndrome I24.1 Ischemic cardiomyopathy I25.5 Transaminitis R74.01 Current smoker F17.200 Coronary artery disease I25.10 Cervical radiculopathy M54.12
[2022-10-15] MEDS ORDERED: SODIUM CHLORIDE 0.9% 1000ML 500 ML IV ONE (01:14)
[2022-10-15] MEDS: MoRPHine SULFATE IR 15 MG TAB (IMMEDIATE RELEASE) PO PRN ×2 (03:43→15:21)
[2022-10-15 04:57] LABS: Albumin Level 3.2 gm/dl (3.4-5.0); Bilirubin,Total 0.5 mg/dl (0.2-1.0); Calcium 8.6 mg/dl (8.6-10.3); Creatinine Clr Calc Pharmacy 72.9 ml/min; Est GFR (African American) 76.9 ml/min; Est GFR (Non-African American) 66.3 ml/min; Globulin 3.2 gm/dl (2.5-4.0); Magnesium 2.4 mg/dl (1.7-2.4); Phosphorus 1.9 mg/dl (2.5-4.9); Potassium 3.9 mmol/L (3.5-5.1); Total Protein 6.4 gm/dl (6.0-8.3)
[2022-10-15 05:02] LABS: Basophils # (auto) 0.03 K/uL (0-0.2); Basophils % (auto) 0.2 %; Eosinophils # (auto) 0.01 K/uL (0-0.50); Eosinophils % (auto) 0.1 %; Hematocrit (blood only) 36.4 % (42.0-52.0); Hemoglobin 12.1 g/dl (14.0-18.0); Immature Granulocytes # (auto) 0.07 K/uL (0.01-0.20); Immature Granulocytes % (auto) 0.5 %; Lymphocytes # (auto) 1.25 K/uL (1.2-3.4); Lymphocytes % (auto) 9.5 %; Mean Corpuscular Hemoglobin 31.8 pg (25.0-34.0); Mean Corpuscular Hgb Conc 33.2 g/dL (32.0-36.0); Mean Corpuscular Volume 95.8 fL (80.0-100.0); Mean Platelet Volume 10.6 fL (9.4-12.4); Monocytes # (auto) 1.04 K/uL (0.11-0.59); Monocytes % (auto) 7.9 %; Neutrophils # (auto) 10.74 K/uL (1.40-6.50); Neutrophils % (auto) 81.8 %; Platelet Count 209 K/uL (130-400); RDW Coefficient of Variation 13.9 % (11.5-14.5); RDW Standard Deviation 49.3 fL (36.4-46.3); White Blood Count 13.14 K/ul (4.8-10.8)
[2022-10-15 05:09] LABS: Partial Thromboplastin Ratio 1.2; Partial Thromboplastin Time 34.8 Seconds (21.0-31.0)
[2022-10-15] MEDS: NITROGLYCERIN 2% OINTMENT 30GM TUBE EXT SCH (05:33)
[2022-10-15 05:48] LABS: Troponin I High Sensitivity 39067.7 pg/ml (0-20)
[2022-10-15] MEDS: MoRPHine SULFATE 4 MG/ML 1 ML CARP\\VIAL IV PRN ×2 (06:32→19:34)
[2022-10-15] MEDS ORDERED: HEPARIN SOD (PORCINE) 1000 UNIT/ML IV ONE (06:50)
--- NOTE | 2022-10-15 08:28 | Electrocardiogram Report ---
Test Reason : Blood Pressure : / mmHG Vent. Rate : 100 BPM Atrial Rate : 100 BPM P-R Int : 156 ms QRS Dur : 100 ms QT Int : 346 ms P-R-T Axes : 050 155 059 degrees QTc Int : 446 ms Normal sinus rhythm Low voltage QRS Inferior infarct (cited on or before 13-OCT-2022) Recent Anterolateral infarct (cited on or before 13-OCT-2022) Abnormal ECG When compared with ECG of 14-OCT-2022 04:57, No significant change was found Confirmed by Phill Catalan ([id number]) on 10/15/2022 8:28:12 AM Referred By: REFERRED SELF Confirmed By:Phill Catalan
[2022-10-15] MEDS ORDERED: POTASSIUM PHOS 3 MMOL/1 ML INFUSION IV STA (08:37)
[2022-10-15] MEDS ORDERED: POTASSIUM PHOSPHATE 15 MMOL in SODIUM CHLORIDE 0.9% 250 ML IV ONE (08:45)
[2022-10-15] MEDS: HEPARIN SODIUM/DEXTROSE 25,000 UNITS/500 ML BAG IV SCH ×2 (08:49→08:52)
[2022-10-15] MEDS: COLCHICINE 0.6 MG TAB PO SCH ×2 (08:50→21:02)
[2022-10-15] MEDS: DOCUSATE SODIUM 100 MG CAP PO SCH ×2 (08:51→21:02)
[2022-10-15] MEDS: ATORVASTATIN 40 MG TAB PO SCH (08:51)
[2022-10-15] MEDS: ASPIRIN 81 MG ECTAB PO SCH (08:51)
[2022-10-15] MEDS: THIAMINE HCL 100 MG TAB PO SCH (08:52)
[2022-10-15] MEDS: METOPROLOL TARTRATE 25 MG TAB PO SCH ×2 (08:52→21:02)
[2022-10-15] MEDS: PANTOprazole 40 MG TAB PO SCH (08:53)
[2022-10-15] MEDS: UMECLIDINIUM BROMIDE 62.5MCG/BLISTER 7 PUFFS/INHALER INH SCH (08:53)
[2022-10-15] MEDS: NICOTINE 21 MG/24 HR TDSY TD SCH (08:53)
[2022-10-15 11:12] LABS: C-Reactive Protein High Sens. 8.9 mg/L
[2022-10-15] MEDS: KETOROLAC TROMETHAMINE 15 MG/ML VIAL IV PRN (11:41)
[2022-10-15 16:04] LABS: Partial Thromboplastin Ratio 1.3; Partial Thromboplastin Time 36.5 Seconds (21.0-31.0)
--- NOTE | 2022-10-15 19:29 | Cardiology Progress Note ---
Date of Service October 15, 2022 Assessment & Plan (1) Maki syndrome: Plan: Chest pain is pleuritic. Continue current anti-inflammatory and pain regimen. IV narcotics and other IV medications will be discontinued at discharge. Home regimen will include colchicine, ibuprofen. (2) Hypertension: Plan: Blood pressure is a bit soft on his current regimen. Nitro-Bid has been discontinued because chest pain is nonischemic. If his blood pressure remains low at that point I would change from metoprolol to tartrate 25 mg p.o. twice daily to metoprolol succinate ER 25 mg once daily. (3) ST elevation [place] (STEMI): Plan: Late presenting LAD occlusion. Medical management including low-dose aspirin, high intensity statin therapy, and beta-sonia. He will have outpatient viability study (cardiac MRI) and additional recommendations pending results. (4) Ischemic cardiomyopathy: Plan: No evidence of volume overload. Awaiting fitment of his LifeVest. Chronic heart failure regimen will be metoprolol succinate ER and if his blood pressure will allow in the future then addition of Entresto/ANU inhibitor/ARB as tolerated. (5) Atherogenic dyslipidemia: Plan: High risk. High intensity statin therapy with a atorvastatin. Plan Once his life vest is fitted he will be appropriate for discharge home from a cardiovascular standpoint. I do recommend follow-up in the cardiology office within 2 weeks. Admission and Anticipated Discharge Date Admission Date: October 13, 2022 Subjective I was only able to review the patient's records, events overnight, and discussed with the hospitalist today. Evidently his chest pain is improved. Also, I discussed viability study and nuclear medicine who informed me that we do not have thallium available to perform viability study at this time. Therefore, we would have to choose cardiac MRI. This is only available as an outpatient. Results & Data Vital Signs (Past 12 Hours) Vital Signs Temp Pulse Pulse Resp BP Pulse Ox O2 Del Method 10/15/22 19:20 36.6 C 100 H 22 112/73 95 Room Air 10/15/22 15:42 36.7 C 91 H 19 97/61 L 98 Room Air 10/15/22 16:00 75 10/15/22 11:29 36.5 C 90 19 89/61 L 98 Room Air 10/15/22 11:56 Room Air 10/15/22 08:00 91 H 10/15/22 08:56 36.3 C L 101 H 18 96/58 L 94 Room Air PG Care Time/CCT Total # of Minutes Spent Total Time Spent with Patient: Total time spent is greater than 50% in coordination of care (as documented) at patient's floor/unit and/or counseling patient: Coding Level of Care Code None Diagnoses Maki syndrome I24.[address] elevation [place] (STEMI) I21.3 Ischemic cardiomyopathy I25.5 Atherogenic dyslipidemia E78.5
--- NOTE | 2022-10-15 20:27 | Hospitalist Progress Note ---
Date of Service October 15, 2022 Assessment & Plan (1) ST elevation ND (STEMI): Plan: P/w 2 days of chest pain, troponin 83333, Q waves and ST elevation on ECG, cardiac cath performed urgently with subacute to chronic occlusion of LAD ECHO with reduced EF 35%, +WMAs, no pericardial effusion LAD not amenable to PCI--> medically manage for now Still with ongoing CP but is certainly pleuritic in nature likely from post-ND pericarditis as per my d/w Cardiology-now much improved with starting colchicine and Toradol-plan to send home on colchicine and ibuprofen as per cardiology CTA Chest neg for PE CK 3000 likely secondary to ND-trended downward Troponin peaked at 112,000 No significant arrhythmias on telemetry Lipid panel with total cholesterol 174, LDL 101, HDL 51 Hemoglobin A1c normal at 5.4% Appreciate Cardiology and Recycling Operations Manager management -continue heparin gtt through tomorrow, ASA -Continue high intensity atorvastatin -started metoprolol and switch to Toprol XL once dose titrated given cardiomyopathy -consider adding on ACEi/ARB/Entresto plus spironolactone +/- SGLT2 inhibitor -follow CBC, CMP, Mag, phos, CK in AM, replace electrolytes as needed to keep optimized-give potassium phosphorus IV today -Started colchicine 0.6 Mg p.o. twice daily, Toradol as needed, morphine as needed for pain -Plan for myocardial viability study as an outpatient and referral to tertiary care center if indicated if viable myocardium in the LAD territory-this will be cardiac MRI-nurse navigator to assist with referral for this -Placed referral to case management for evaluation for LifeVest-ordered (2) Maki syndrome: Plan: As above Start colchicine, continue Toradol as needed Morphine as needed (3) Ischemic cardiomyopathy: Plan: as above (4) Transaminitis: Plan: 2/2 elevated CK, muscle enzyme breakdown all other LFTs normal Continues to be improving today follow LFTs, CK (5) Current smoker: Plan: counseled to quit smoking has nicotine patch in place seen by ICU/PULM here who recommends starting maintenance inhaler with umeclidinium with cramps in thighs at rest-likely with PAD recommend see Vascular after discharge (6) Coronary artery disease: Plan: as above, severe (7) Cervical radiculopathy: Plan: sees Pain Management continue home po morphine Plan Leukocytosis-no evidence of infection, continues to be improving today without any antibiotic therapy, could be from stress of STEMI DVT proph-heparin gtt Dispo-continued stay on PCU. Discussed care with and daughter at the bedside Admission and Anticipated Discharge Date Admission Date: October 13, 2022 Subjective Patient feels chest pain is improving today. He is able to take deep breaths. He is out of bed to chair. Telemetry with normal sinus rhythm and rates in the 90s, no arrhythmias I discussed his care with cardiology Physical Exam Constitutional: WD/WN, vitals as above Neck: trachea midline, no thyromegaly Respiratory: normal respiratory effort, lungs clear to auscultation Cardiovascular: RRR, no murmur, no edema Chest (Breasts): Chest: normal inspection of chest Gastrointestinal (Abdomen): normal bowel sounds, soft, nontender, no hepatosplenomegaly Musculoskeletal: Extremities: extremities normal to inspection; no cyanosis and no clubbing Skin: no rashes, warm and dry Neurologic: moves all extremities and awake; no focal motor deficits Psychiatric: A+Ox3, euthymic affect Lymphatic: no lymphedema Results & Data Results & Data Vital Signs (Past 12 Hours) Vital Signs Temp Pulse Pulse Resp BP Pulse Ox O2 Del Method 10/15/22 19:20 36.6 C 100 H 22 112/73 95 Room Air 10/15/22 15:42 36.7 C 91 H 19 97/61 L 98 Room Air 10/15/22 16:00 75 10/15/22 11:29 36.5 C 90 19 89/61 L 98 Room Air 10/15/22 11:56 Room Air 10/15/22 08:56 36.3 C L 101 H 18 96/58 L 94 Room Air Laboratory Results CBC, BMP, magnesium, phosphorus, troponin, LFTs all reviewed PG Care Time/CCT Total # of Minutes Spent Total Time Spent with Patient: Total time spent is greater than 50% in coordination of care (as documented) at patient's floor/unit and/or counseling patient: Coding Level of Care Code 95148 SUB INP/OBS CARE 3/50MIN Diagnoses ST elevation ND (STEMI) I21.3 Maki syndrome I24.1 Ischemic cardiomyopathy I25.5 Transaminitis R74.01 Current smoker F17.200 Coronary artery disease I25.10 Cervical radiculopathy M54.12
[2022-10-15] MEDS: [UNRECOGNIZED DRUG - REMARK] SCH (21:07)
[2022-10-15 23:58] LABS: Partial Thromboplastin Ratio 1.2; Partial Thromboplastin Time 34.1 Seconds (21.0-31.0)
[2022-10-16] MEDS: MoRPHine SULFATE 4 MG/ML 1 ML CARP\\VIAL IV PRN (00:27)
[2022-10-16] MEDS ORDERED: HEPARIN SOD (PORCINE) 1000 UNIT/ML IV ONE (00:30)
[2022-10-16] MEDS: KETOROLAC TROMETHAMINE 15 MG/ML VIAL IV PRN (03:28)
[2022-10-16] MEDS: HEPARIN SODIUM/DEXTROSE 25,000 UNITS/500 ML BAG IV SCH (04:08)
[2022-10-16 07:55] LABS: Partial Thromboplastin Ratio 1.5
[2022-10-16 07:57] LABS: Partial Thromboplastin Time 43.1 Seconds (21.0-31.0)
[2022-10-16] MEDS: ASPIRIN 81 MG ECTAB PO SCH (08:27)
[2022-10-16] MEDS: COLCHICINE 0.6 MG TAB PO SCH ×2 (08:27→21:19)
[2022-10-16] MEDS: THIAMINE HCL 100 MG TAB PO SCH (08:27)
[2022-10-16] MEDS: ATORVASTATIN 40 MG TAB PO SCH (08:28)
[2022-10-16] MEDS: DOCUSATE SODIUM 100 MG CAP PO SCH ×2 (08:28→20:46)
[2022-10-16] MEDS: NICOTINE 21 MG/24 HR TDSY TD SCH (08:28)
[2022-10-16] MEDS: PANTOprazole 40 MG TAB PO SCH (08:28)
[2022-10-16] MEDS: UMECLIDINIUM BROMIDE 62.5MCG/BLISTER 7 PUFFS/INHALER INH SCH (08:28)
[2022-10-16] MEDS: METOPROLOL TARTRATE 25 MG TAB PO SCH ×2 (08:28→20:47)
--- NOTE | 2022-10-16 08:29 | Electrocardiogram Report ---
Test Reason : Blood Pressure : / mmHG Vent. Rate : 094 BPM Atrial Rate : 094 BPM P-R Int : 158 ms QRS Dur : 098 ms QT Int : 336 ms P-R-T Axes : 044 187 056 degrees QTc Int : 420 ms Normal sinus rhythm Left atrial enlargement Low voltage QRS Inferior infarct , age undetermined (cited on or before 13-OCT-2022) Recent Anterolateral infarct (cited on or before 13-OCT-2022) Abnormal ECG When compared with ECG of 15-OCT-2022 05:47, No significant change was found Confirmed by Phill Catalan ([id number]) on 10/16/2022 8:29:27 AM Referred By: REFERRED SELF Confirmed By:Phill Catalan
[2022-10-16 10:56] LABS: Basophils # (auto) 0.04 K/uL (0-0.2); Basophils % (auto) 0.3 %; Eosinophils # (auto) 0.01 K/uL (0-0.50); Eosinophils % (auto) 0.1 %; Hematocrit (blood only) 34.9 % (42.0-52.0); Hemoglobin 11.5 g/dl (14.0-18.0); Immature Granulocytes # (auto) 0.06 K/uL (0.01-0.20); Immature Granulocytes % (auto) 0.5 %; Lymphocytes # (auto) 0.69 K/uL (1.2-3.4); Lymphocytes % (auto) 5.9 %; Mean Corpuscular Hemoglobin 31.7 pg (25.0-34.0); Mean Corpuscular Volume 96.1 fL (80.0-100.0); Mean Platelet Volume 10.6 fL (9.4-12.4); Monocytes # (auto) 0.85 K/uL (0.11-0.59); Monocytes % (auto) 7.2 %; Platelet Count 262 K/uL (130-400); RDW Standard Deviation 49.5 fL (36.4-46.3); Red Blood Count 3.63 M/uL (4.70-6.10); White Blood Count 11.75 K/ul (4.8-10.8)
[2022-10-16 11:10] LABS: Albumin Globulin Ratio 0.9 (0.9-2); Albumin Level 3.3 gm/dl (3.4-5.0); BUN Creatinine Ratio 17.1 (10-20); Bilirubin,Total 0.4 mg/dl (0.2-1.0); Calcium 8.9 mg/dl (8.6-10.3); Creatinine Clr Calc Pharmacy 72.3 ml/min; Est GFR (African American) 76.1 ml/min; Est GFR (Non-African American) 65.7 ml/min; Globulin 3.5 gm/dl (2.5-4.0); Magnesium 2.6 mg/dl (1.7-2.4); Phosphorus 2.7 mg/dl (2.5-4.9); Potassium 3.8 mmol/L (3.5-5.1); Total Protein 6.8 gm/dl (6.0-8.3)
[2022-10-16] MEDS ORDERED: POTASSIUM CHLORIDE CRTAB 20 MEQ TABCR PO STA (14:11)
--- NOTE | 2022-10-16 16:23 | XCELERA ---
[id number] \\[email or web address]_[email or web address]\[id number]}___[id number]
[2022-10-16] MEDS ORDERED: HEPARIN--STOP ORDER ONE (17:00)
--- NOTE | 2022-10-16 17:08 | Hospitalist Progress Note ---
Date of Service October 16, 2022 Assessment & Plan (1) ST elevation FL (STEMI): Plan: P/w 2 days of chest pain, troponin 51236, Q waves and ST elevation on ECG, cardiac cath performed urgently with subacute to chronic occlusion of LAD ECHO with reduced EF 30-35%, +WMAs in LAD territory, no pericardial effusion LAD not amenable to PCI--> medically manage for now Still with ongoing CP but is certainly pleuritic in nature likely from post-FL pericarditis as per my d/w Cardiology-now much improved with starting colchicine and Toradol-plan to send home on colchicine and ibuprofen as per cardiology CTA Chest neg for PE CK 3000 likely secondary to FL-trended downward Troponin peaked at 112,000 No significant arrhythmias on telemetry thus far Lipid panel with total cholesterol 174, LDL 101, HDL 51 Hemoglobin A1c normal at 5.4% Appreciate Cardiology and Physical Therapist Center Manager management On evening of 10/15, had a repeat episode of the same pain he had at home that brought him in which was severe. This was about 6 hours after removing nitropaste. Repeat limited ECHO 10/16 shows EF 25-30%, similar WMAs, no LV thrombus, and trace pericardial effusion similar to previous Troponin continues to trend downward. Unclear if this was further anginal pain or not -ok to dc heparin gtt as no LV thrombus on ECHO -increase ASA to 325mg po bid for pericarditis as per my d/w Dr. Sun. Dc toradol -Continue high intensity atorvastatin -started metoprolol and switch to Toprol XL once dose titrated given cardiomyopathy -consider adding on ACEi/ARB/Entresto plus spironolactone +/- SGLT2 inhibitor however BP is low and this limits ability to do so -follow CBC, CMP, Mag, phos, CK in AM, replace electrolytes as needed to keep optimized-give potassium po today -Started colchicine 0.6 Mg p.o. twice daily, morphine as needed for pain -Plan for myocardial viability study as an outpatient and referral to tertiary care center if indicated if viable myocardium in the LAD territory-this will be cardiac MRI-Cardiology arranging this -Placed referral to case management for evaluation for LifeVest-now in place -Cardio to contact Marilyn and arrange referral -continue to monitor for worsening chest pain (2) Maki syndrome: Plan: As above Started colchicine, change to ASA 325mg po bid dc toradol Morphine as needed (3) Ischemic cardiomyopathy: Plan: as above (4) Transaminitis: Plan: 2/2 elevated CK, muscle enzyme breakdown all other LFTs normal Continues to be improving today (5) Current smoker: Plan: counseled to quit smoking has nicotine patch in place seen by ICU/PULM here who recommends starting maintenance inhaler with umeclidinium with cramps in thighs at rest-likely with PAD recommend see Vascular after discharge (6) Coronary artery disease: Plan: as above, severe (7) Cervical radiculopathy: Plan: sees Pain Management continue home po morphine Plan Leukocytosis-no evidence of infection, continues to improve today without any antibiotic therapy, could be from stress of STEMI DVT proph-heparin gtt now stopped Dispo-continued stay on PCU.Possible discharge in 1-2 days if remains chest pain free Admission and Anticipated Discharge Date Admission Date: October 13, 2022 Subjective Pt had an episode of CP overnight that felt just like his previous severe episodes at home-pain started in mid abdomen and radiated up through to chest and felt like an intense burning under his ribs and also with severe muscle tightness into left shoulder and also bilat wrists. The pain actually came on after he received IV morphine and he was told his BP was a bit low. No pain since then and still has some of the milder pain with taking a deep breath. Discussed his care with Dr. Sun of Cardiology. Tele with NSR, rates 90s Physical Exam Constitutional: WD/WN, vitals as above Neck: trachea midline, no thyromegaly Respiratory: normal respiratory effort, lungs clear to auscultation Cardiovascular: RRR, no murmur, no edema Chest (Breasts): Chest: normal inspection of chest Gastrointestinal (Abdomen): normal bowel sounds, soft, nontender, no hepatosplenomegaly Musculoskeletal: Extremities: extremities normal to inspection; no cyanosis and no clubbing Skin: no rashes, warm and dry Neurologic: moves all extremities and awake; no focal motor deficits Psychiatric: A+Ox3, euthymic affect Lymphatic: no lymphedema Results & Data Results & Data Vital Signs (Past 12 Hours) Vital Signs Temp Pulse Pulse Resp BP Pulse Ox O2 Del Method 10/16/22 15:22 36.9 C 19 102/67 95 Room Air 10/16/22 15:14 102 H 10/16/22 11:40 36.6 C 90 18 90/57 L 97 Room Air 10/16/22 07:30 Nasal Cannula 10/16/22 07:30 91 H 10/16/22 07:07 36.6 C 94 H 19 101/67 97 Room Air O2 Flow Rate 10/16/22 15:22 10/16/22 15:14 10/16/22 11:40 10/16/22 07:30 2 10/16/22 07:30 10/16/22 07:07 Laboratory Results CBC, CMP, troponin, mag, phos reviewed PG Care Time/CCT Total # of Minutes Spent Total Time Spent with Patient: Total time spent is greater than 50% in coordination of care (as documented) at patient's floor/unit and/or counseling patient: Coding Level of Care Code 98079 SUB INP/OBS CARE 3/50MIN Diagnoses ST elevation FL (STEMI) I21.3 Maki syndrome I24.1 Ischemic cardiomyopathy I25.5 Transaminitis R74.01 Current smoker F17.200 Coronary artery disease I25.10 Cervical radiculopathy M54.12
[2022-10-16] MEDS ORDERED: IBUPROFEN 600 MG TAB PO PRN (17:32)
--- NOTE | 2022-10-16 17:32 | Cardiology Progress Note ---
Date of Service October 16, 2022 Assessment & Plan (1) ST elevation (STEMI) myocardial infarction involving left anterior justin cending coronary artery: Plan: Medically managed anterior STEMI Moderate nonobstructive LCx disease 2. Severe LV dysfunctionLAD distribution wall motion abnormality, EF 25 to 30% 3. Post NM pericarditis 4. Anemia 5. Tobacco abuse 6. Prior oropharyngeal cancer post neck resection 2014 Episode of chest discomfort overnight. Troponin still downtrending. For now we will treat as additional post NM pericarditis pain. Blood pressures remain relatively soft. No evidence of significant pericardial effusion on echo. Severe LV dysfunction persists. No evidence of mechanical complications. On exam reasonably perfused, no significant congestion. IVC dilated on echo. No LV thrombus on echo Continue medical management of MIcan stop heparin infusion today Recommend DAPT with aspirin and clopidogrel. We will load with clopidogrel 300 mg today Agree with high-dose aspirin, colchicine for post NM pericarditis. Reduce metoprolol to 12.5 mg twice dailytransition to Toprol-XL on discharge We will try to add ANU, MRA as BP allowsmay have to be done as an outpatient Continue statin, PPI, nicotine patch If additional chest pain try oral ibuprofen before nitro, morphine. If short of breath/hypoxic try single dose of IV diuretic with some signs of congestion on echo Long-term plan is for viability study and possible single-vessel CABG if persistent LV dysfunction and significant viability. Soonest cardiac MRI for viability could be scheduled was in [place] at the end of October. Discussed case with Dr. Rudolph with [facility] cardiac surgery. He agreed would not want to operate in the short term after acute NM if possible and okay with above timeframe for viability study. Follow-up with him will be arranged. From a cardiac standpoint if remains hemodynamically stable, chest pain free could potentially be discharged tomorrow or Wednesday. Will need close cardiology follow-up. LifeVest is in place. Admission and Anticipated Discharge Date Admission Date: October 13, 2022 Subjective Patient had episode of chest pain overnight reminiscent of what he had with his NM. Responded to IV Toradol, morphine. Since that time no additional chest pain. Still hesitant to take a deep breath in due to mild residual pleuritic chest symptoms but denies any significant shortness of breath. Blood pressure intermittently low down to 74/44 last night Telemetry reviewedsinus tachycardia 90s to 100s Review of Systems Review of Systems: All systems reviewed & are unremarkable except as noted in HPI & below Physical Exam Physical Exam: General: Appears mildly ill HEENT: Sclerae anicteric Lungs: Clear to auscultation bilaterally, no crackles or wheezes Cardiac: Tachycardic, regular, no murmurs Vascular: 2+ radial, DP pulses. Abdomen: Soft, nontender Extremities: No edema, fingers/toes cool Neuro: Nonfocal Psych: Alert orient x3, normal affect and mood Results & Data Vital Signs (Past 12 Hours) Vital Signs Temp Pulse Pulse Resp BP Pulse Ox O2 Del Method 10/16/22 15:22 98.4 F 19 102/67 95 Room Air 10/16/22 15:14 102 H 10/16/22 11:40 97.9 F 90 18 90/57 L 97 Room Air 10/16/22 07:30 Nasal Cannula 10/16/22 07:30 91 H 10/16/22 07:07 97.9 F 94 H 19 101/67 97 Room Air O2 Flow Rate 10/16/22 15:22 10/16/22 15:14 10/16/22 11:40 10/16/22 07:30 2 10/16/22 07:30 10/16/22 07:07 PG Care Time/CCT Total # of Minutes Spent Total Time Spent with Patient: Total time spent is greater than 50% in coordination of care (as documented) at patient's floor/unit and/or counseling patient: Coding Level of Care Code 45539 SUB INP/OBS CARE 3/50MIN Diagnoses ST elevation (STEMI) myocardial infarction involving left anterior descending coronary artery I21.02
[2022-10-16] MEDS ORDERED: CLOPIDOGREL BISULFATE 300 MG TAB PO STA (17:44)
[2022-10-16] MEDS: ASPIRIN 325 MG ECTAB PO SCH (20:45)
[2022-10-16] MEDS: [UNRECOGNIZED DRUG - REMARK] SCH (20:47)
[2022-10-16] MEDS: MoRPHine SULFATE IR 15 MG TAB (IMMEDIATE RELEASE) PO PRN (21:17)
[2022-10-17 06:46] LABS: Basophils # (auto) 0.04 K/uL (0-0.2); Basophils % (auto) 0.4 %; Eosinophils # (auto) 0.09 K/uL (0-0.50); Eosinophils % (auto) 0.9 %; Hematocrit (blood only) 36.4 % (42.0-52.0); Hemoglobin 12.1 g/dl (14.0-18.0); Immature Granulocytes # (auto) 0.05 K/uL (0.01-0.20); Immature Granulocytes % (auto) 0.5 %; Lymphocytes # (auto) 1.21 K/uL (1.2-3.4); Lymphocytes % (auto) 12.2 %; Mean Corpuscular Hemoglobin 31.4 pg (25.0-34.0); Mean Corpuscular Hgb Conc 33.2 g/dL (32.0-36.0); Mean Corpuscular Volume 94.5 fL (80.0-100.0); Mean Platelet Volume 10.1 fL (9.4-12.4); Monocytes # (auto) 0.95 K/uL (0.11-0.59); Monocytes % (auto) 9.5 %; Neutrophils # (auto) 7.61 K/uL (1.40-6.50); Neutrophils % (auto) 76.5 %; Platelet Count 276 K/uL (130-400); RDW Coefficient of Variation 13.5 % (11.5-14.5); RDW Standard Deviation 46.9 fL (36.4-46.3); Red Blood Count 3.85 M/uL (4.70-6.10); White Blood Count 9.95 K/ul (4.8-10.8)
[2022-10-17 06:55] LABS: Albumin Globulin Ratio 0.9 (0.9-2); Albumin Level 3.3 gm/dl (3.4-5.0); BUN Creatinine Ratio 16.7 (10-20); Bilirubin,Total 0.5 mg/dl (0.2-1.0); Calcium 9.2 mg/dl (8.6-10.3); Creatinine Clr Calc Pharmacy 74.1 ml/min; Est GFR (African American) 78.4 ml/min; Est GFR (Non-African American) 67.7 ml/min; Globulin 3.6 gm/dl (2.5-4.0); Magnesium 2.6 mg/dl (1.7-2.4); Phosphorus 2.8 mg/dl (2.5-4.9); Potassium 3.6 mmol/L (3.5-5.1); Total Protein 6.9 gm/dl (6.0-8.3)
[2022-10-17 07:07] LABS: Troponin I High Sensitivity 13803.5 pg/ml (0-20)
[2022-10-17] MEDS ORDERED: CLOPIDOGREL BISULFATE 75 MG TAB PO SCH (09:00)
[2022-10-17] MEDS: ASPIRIN 325 MG ECTAB PO SCH (10:46)
[2022-10-17] MEDS: METOPROLOL TARTRATE 25 MG TAB PO SCH (10:47)
[2022-10-17] MEDS: DOCUSATE SODIUM 100 MG CAP PO SCH (10:48)
[2022-10-17] MEDS: COLCHICINE 0.6 MG TAB PO SCH (10:48)
[2022-10-17] MEDS: NICOTINE 21 MG/24 HR TDSY TD SCH (10:48)
[2022-10-17] MEDS: PANTOprazole 40 MG TAB PO SCH (10:49)
[2022-10-17] MEDS: THIAMINE HCL 100 MG TAB PO SCH (10:49)
[2022-10-17] MEDS: ATORVASTATIN 40 MG TAB PO SCH (10:49)
[2022-10-17] MEDS: UMECLIDINIUM BROMIDE 62.5MCG/BLISTER 7 PUFFS/INHALER INH SCH (10:50)
--- NOTE | 2022-10-17 11:54 | Discharge Summary ---
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 It is severe in nature and felt like a burning and pressure. It was associated with nausea, throat burning, and was not relieved with antacids as similar but not as severe episodes have been in the past. The symptoms came on with shoveling a dirt pile. In the ER, he was found to have diffuse deep Q waves with some ST [place] [address], elevated AST, leukocytosis of 21k, and hyponatremia with Na+ 131. CXR negative. Limited ECHO views at bedside showed WMAs in anterolat and apex regions. Some of his pain was more pleuritic in nature but was not associated with any hypoxia. He had a CTA Chest and CT abd/pel which showed acute SC in LV, but otherwise fairly unremarkable. He was taken for a heart alert to mobile lab technician and found ot have subacute to chronic total occlusion of LAD. It was not amenable to PCI. He had very few collaterals. He was started on heparin gtt and decision made by Cardiology to pursue medical management at this time.He will be admitted to the ICU for close observation of any post-cath complications given complex lesion, new onset HF s/p STEMI that likely occurred 2 days prior. Principal Dx & Hospital Course #1 = Principal Diagnosis (1) ST elevation SC (STEMI): P/w 2 days of chest pain, troponin 44844, Q waves and ST elevation on ECG, cardiac cath performed urgently with subacute to chronic occlusion of LAD ECHO with reduced EF 30-35%, +WMAs in LAD territory, no pericardial effusion LAD not amenable to PCI--> medically manage for now Still with ongoing CP but is certainly pleuritic in nature likely from post-SC pericarditis as per my d/w Cardiology-now much improved with starting colchicine and Toradol-plan to send home on colchicine and ibuprofen as per cardiology CTA Chest neg for PE CK 3000 likely secondary to SC-trended downward Troponin peaked at 112,000 No significant arrhythmias on telemetry thus far Lipid panel with total cholesterol 174, LDL 101, HDL 51 Hemoglobin A1c normal at 5.4% Appreciate Cardiology and Nurse Liaison management On evening of 10/15, had a repeat episode of the same pain he had at home that brought him in which was severe. This was about 6 hours after removing nitropaste. Repeat limited ECHO 10/16 shows EF 25-30%, similar WMAs, no LV thrombus, and trace pericardial effusion similar to previous Troponin continues to trend downward. Unclear if this was further anginal pain or not -was on heparin gtt but discontinued after 48 hrs as no LV thrombus on repeat ECHO -increased ASA to 325mg po bid for pericarditis as per my d/w Dr. Sun. Can take ibuprofen prn breakthrough pleuritic pain but this has improved overall -started high intensity atorvastatin -started metoprolol and switch to Toprol XL 25mg daily given cardiomyopathy -consider adding on ACEi/ARB/Entresto plus spironolactone +/- SGLT2 inhibitor however BP is low and this limits ability to do so-can add on as outpt if able to -Started colchicine 0.6 Mg p.o. twice daily, morphine as needed for pain -Plan for myocardial viability study as an outpatient and referral to tertiary care center if indicated if viable myocardium in the LAD territory-this will be cardiac MRI-Cardiology arranging this -Placed referral to case management for evaluation for LifeVest-now in place -Cardio to contact Marilyn and arrange referral -nitro prn chest pain after discharge (2) Maki syndrome: As above Started colchicine, ASA 325mg po bid, iburpofen prn Morphine as needed (3) Ischemic cardiomyopathy: as above (4) Transaminitis: 2/2 elevated CK, muscle enzyme breakdown all other LFTs normal Continues to be improving today (5) Current smoker: counseled to quit smoking has nicotine patch in place seen by ICU/PULM here who recommends starting maintenance inhaler with umeclidinium with cramps in thighs at rest-likely with PAD recommend see Vascular or have vascular studies at some point after discharge (6) Coronary artery disease: as above, severe (7) Cervical radiculopathy: sees Pain Management continue home po morphine (8) GERD (gastroesophageal reflux disease): change Prilosec to Protonix on discharge due to interaction with Plavix Plan Leukocytosis-no evidence of infection, now resolved-from stress of STEMI DVT proph-heparin gtt Dispo-dc to home, discussed care with Cardiology on day of discharge Discharge Exam Constitutional WD/WN, vitals as above ENMT external ear and nose normal, oropharynx normal Neck trachea midline, no thyromegaly Respiratory normal respiratory effort, lungs clear to auscultation Cardiovascular RRR, no murmur, no edema Chest (Breasts) Chest: normal inspection of chest Gastrointestinal (Abdomen) normal bowel sounds, soft, nontender, no hepatosplenomegaly Musculoskeletal Extremities: extremities normal to inspection; no cyanosis and no clubbing Skin no rashes, warm and dry Neurologic moves all extremities and awake; no focal motor deficits Psychiatric A+Ox3, euthymic affect Lymphatic no lymphedema Updated Medication List Medication Instructions Recorded Confirmed Type acetaminophen 500 mg tablet 1,000 mg PO Q6H PRN pain or fever 03/17/18 10/14/22 History (Tylenol Extra Strength) ibuprofen 200 mg tablet (Advil) 600 mg PO Q6H PRN pain or fever 03/17/18 10/14/22 History omeprazole 40 mg capsule,delayed 40 mg PO DAILY 03/17/18 10/14/22 History release naloxone 4 mg/actuation nasal spray 1 spray intranasal Q3M PRN opioid 06/25/22 10/14/22 Rx overdose #2 ea cyclobenzaprine 10 mg tablet 10 mg PO TID PRN muscle spasm #90 10/06/22 10/14/22 Rx tabs morphine 15 mg immediate release 15 mg PO QID PRN pain #120 tabs 10/06/22 10/14/22 Rx tablet polyethylene glycol 3350 17 17 g PO DAILY PRN Constipation 10/14/22 10/14/22 History gram/dose oral powder (Miralax) atorvastatin 40 mg tablet 40 mg PO QAM #30 tabs 10/15/22 Rx colchicine 0.6 mg tablet (Colcrys) 0.6 mg PO BID #60 tabs 10/15/22 Rx nitroglycerin 0.4 mg sublingual 0.4 mg sublingual PRN PRN chest 10/15/22 Rx tablet (Nitrostat) pain #25 tabs aspirin 325 mg tablet,delayed 325 mg PO BID #60 tabs 10/17/22 Rx release (Ecotrin) clopidogrel 75 mg tablet 75 mg PO QAM #30 tabs 10/17/22 Rx metoprolol succinate 25 mg 25 mg PO HS #30 tabs 10/17/22 Rx tablet,extended release 24 hr (Toprol XL) nicotine 21 mg/24 hr daily 21 mg transdermal QAM #14 ea 10/17/22 Rx transdermal patch (Nicoderm CQ) pantoprazole 40 mg tablet,delayed 40 mg PO QAM #30 tabs 10/17/22 Rx release umeclidinium 62.5 mcg/actuation 1 inh inhalation DAILY #30 ea 10/17/22 Rx blister powder for inhalation (Incruse Ellipta) Hospital Stay Data Consultations 10/13/22 07:56 ED Decision to Admit Stat 10/13/22 09:53 Consult Cardiology Routine Consult Nurse Liaison Routine Procedures Performed Operation Date: 10/13/22 07:50 Actual Procedures s Cineradiography w/Routine Exam - Lino Marshall MD, PhD p Cath, Coronaries ONLY (no LV) - Lino Marshall MD, PhD Diagnostic Imagining Performed 10/13/22 06:52 CT Abd and Pelvis [CT abd pelvis IV con only] Stat 10/13/22 07:13 CT angio chest w con Stat 10/13/22 07:52 CL Cath Imgs for PACS use only Stat ECHO x 2 Pending Results Patient Have Any Pending Studies at Discharge: No Discharge Instructions Given to Patient (Per Discharging Provider) You were admitted after having a major heart attack. You have heart failure as a result of this. You were started on several new medications to prevent future heart attacks and help improve your heart failure. As we discussed, you will be referred to [facility] for evaluation for complex stenting versus bypass surgery. Please wear the LifeVest at all times except showering-this is a protective measure to prevent sudden if you have an abnormal heart rhythm. Please do not smoke cigarettes after you leave the hospital. That will almost certainly cause poor blood flow to the heart and could cause you to have another heart attack. You should take colchicine twice a day every day for the inflammation of the heart. You can take ibuprofen as needed for pain in the chest with taking deep breaths. Your omeprazole will be changed to a similar medication called pantoprazole due to an interaction of omeprazole with Plavix. ACTIVITY RECOMMENDATIONS: Excess manipulation of the wrist should be avoided for the next 24-48 hours. * No lifting over 2 pounds (approximately a 1/2 gallon of milk) with the utilized arm for 24 hours. * No strenuous activity such as bowling or tennis for 3 days. * Keep the site of the procedure covered with a bandage for 24 hours. *You may shower the day after the procedure. Do not take a tub bath or submerge the puncture site in water for the next 3 days. *Do not operate any motorized equipment for 3 days. SPECIAL CARE INSTRUCTIONS: The site may be slightly bruised and sore following your procedure. Should any of the following occur, contact the Dr. who performed your procedure. 1. Redness/inflammation, swelling, chills, or fever, or colored drainage at procedure site within 3-7 days after your procedure. 2. Coldness, discoloration, ongoing numbness, severe pain, or swelling. Expect mild tingling of hand and tenderness at the puncture site for up to three days. If this persists beyond three days, or other symptoms develop, notify the Dr. who performed your procedure. BLEEDING: If the procedure site on your wrist begins to bleed, do not panic 1. Place 1 or 2 fingers firmly just slightly above the insertion site to stop the bleeding. You may be able to feel your pulse as you hold pressure. 2. Lift your finger after 5 minutes to see if the bleeding has stopped. 3. Once the bleeding has stopped, gently wipe the wrist area clean with a bandage. * If the bleeding from your wrist does not stop after 10 minutes, or if there is a large amount of bleeding or spurting, call 911 (do not drive yourself to the hospital). SKIN IRRITATION: * You may experience some redness and/or swelling in the area where radiation was administered. If any skin irritation occurs, please contact your family physician. FOLLOW UP VISIT: Keep any scheduled doctor appointments. Total Time Total Time Spent Total Time Spent (In Minutes): 40 min Coding Level of Care Code 89681 INP/OBS DISCH >[address] elevation SC (STEMI) I21.3 Maki syndrome I24.1 Ischemic cardiomyopathy I25.5 Transaminitis R74.01 Current smoker F17.200 Coronary artery disease I25.10 Cervical radiculopathy M54.12 GERD (gastroesophageal reflux disease) K21.9
== END 2022-10-17 13:15 | disposition home or self-care (01) | DRG 281 ==
LOC: ED 06:32 → CC 08:11 → 1E 09:53 → 2S 10-15 06:41
PROC: CLB.CCO (~2022-10-13)